=== PATIENT | female | born 1950 | race Caucasian/White ===

== ENCOUNTER → 2016-12-15 | Outpatient (CLI) | payer MEDICARE, OTHER ==
--- NOTE | 2016-12-15 22:51 | US ---
EXAMINATION TYPE: US kidneys/renal and bladder DATE OF EXAM: 12/15/2016 4:34 PM COMPARISON: NONE CLINICAL HISTORY: 66-year-old female with dysuria R30.0. TECHNIQUE: Multiple sonographic images of the kidneys and bladder were obtained. FINDINGS: EXAM MEASUREMENTS: Right Kidney: 10.8 x 3.9 x 5.0 cm Left Kidney: 11.1 x 5.6 x 5.6 cm No hydronephrosis on either side. Scattered small echogenic foci are present within the left kidney and could represent prominent vascu lar reflectors versus tiny nonobstructive calculi. There is a 1.8 cm cyst within the renal sinus region of the mid to lower pole left kidney. Internal l ow-level echoes are present. No gross abnormality of the urine distended bladder. The oracle identity management consultant reports visualizing both uretera l jets. IMPRESSION: 1. No hydronephrosis. 2. Echogenic foci within the left kidney could represent tiny nonobstructive calculi or prominent vas cular reflections. 3. A 1.8 cm parapelvic cyst on the left. Internal echoes could be artifactual or could represent debr is.
== END | disposition home or self-care (01) ==
LOC: RADUSMAIN 15:49
PROVIDERS: ATTEND Internal Medicine Geriatric Medicine
DX: N28.1 Cyst of kidney, acquired (principal); R93.422 Abnormal radiologic findings on diagnostic imaging of left kidney; R30.0 Dysuria
CPT/HCPCS: 76770

== ENCOUNTER → 2018-04-24 | Outpatient (CLI) | payer MEDICARE, OTHER ==
--- NOTE | 2018-04-24 16:48 | CT ---
EXAMINATION TYPE: CT abdomen pelvis w con DATE OF EXAM: 04/24/2018 COMPARISON: None HISTORY: Lower abdominal pain x2 weeks CT DLP: 1040.7 mGycm Automated exposure control for dose reduction was used. CONTRAST: CT scan of the abdomen pelvis is performed with IV Contrast, patient injected with 100 mL of Isovue 3 00. FINDINGS- LUNG BASES- No significant abnormality is appreciated. LIVER/GB-liver is low in attenuation correlate for fatty infiltration. Liver is prominent in size. PANCREAS- No gross abnormality is seen. SPLEEN- No gross abnormality is seen. Small accessory spleen noted. Small splenic granuloma. ADRENALS- No gross abnormality is seen. KIDNEYS/BLADDER- no hydronephrosis nephrolithiasis or renal mass. Parapelvic renal cysts are noted. BOWEL-diverticulosis of the colon with no CT evidence of diverticulitis.. Now thickening the wall the right colon with no inflammatory changes. LYMPH NODES- No greater than 1cm abdominal or pelvic lymph nodes areappreciated. OSSEOUS STRUCTURES-hypertrophic and degenerative changes of the spine.. OTHER- mild atherosclerotic change of the aorta. No evidence of aneurysm. No free fluid or free air. IMPRESSION- 1. Hepatomegaly with findings suggestive of fatty infiltration. 2. Diverticulosis of the colon with no CT evidence of diverticulitis. 3. There is mild wall thickening of the right colon without evidence of inflammatory change. This is a nonspecific finding. If clinically warranted direct visualization or barium enema could BE obtained for further evaluation.
== END | disposition home or self-care (01) ==
LOC: RADCTMAIN 14:33
PROVIDERS: ATTEND Internal Medicine Geriatric Medicine
DX: K57.30 Diverticulosis of large intestine without perforation or abscess without bleeding (principal); R16.0 Hepatomegaly, not elsewhere classified; K63.89 Other specified diseases of intestine
CPT/HCPCS: 74177; Q9967

== ENCOUNTER → 2018-06-05 | Outpatient (CLI) | payer MEDICARE, OTHER ==
[2018-06-05 14:55] VITALS: BP 108/71; PULSE 75; TEMP 97.9; BMI 29.9
--- NOTE | 2018-06-05 15:54 | P.HPOB ---
History of Present Illness H&P Date: 06/05/18 Chief Complaint: The patient is here for her routine gynecologic exam. This is a 68-year-old with an LMP of 2006. The patient continues to have intermittent vulvar pruritus. She's had this for many years. She has found that clobetasol cream is the most helpful. She uses this sparingly. She states her one prescription has lasted for several years. She denies any postmenopausal bleeding in his otherwise without complaints. Review of Systems Weight has been stable. She denies respiratory, cardiac and G.I. problems. She denies maltreatment or problems with falling. : she denies any significant problems with urinary leakage. Past Medical History Additional Past Medical History / Comment(s): Migraine headaches diet controlled and Mnire's disease. 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 History of Any Multi-Drug Resistant Organisms: None Reported Past Surgical History: Orthopedic Surgery (Right knee surgery), Tonsillectomy Additional Past Surgical History / Comment(s): Cataract surgery. Colonoscopies in 1997 and 2013. 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 - Past Family History Son(s) Additional Family Medical History / Comment(s): Child of a cardiac defect at 2 days after . Medications and Allergies Home Medications Medication Instructions Recorded Confirmed Type Magnesium PO DAILY 06/05/18 History Olmesartan/Hydrochlorothiazide PO DAILY 06/05/18 History [Benicar Hct 20-12.5 mg Tablet] Vitamin B Complex PO DAILY 06/05/18 History Allergies Allergy/AdvReac Type Severity Reaction Status Date / Time midazolam [From Versed] AdvReac Severe Hallucinati Unverified 06/05/18 14:33 ons Penicillins AdvReac Severe hives Unverified 06/05/18 14:32 Exam Vital Signs Temp Pulse BP 06/05/18 14:33 97.9 F 75 108/71 Intake and Output 06/05/18 06/05/18 06/05/18 06:59 14:59 22:59 Other: Weight 89.358 kg Height 5'8", weight 197 pounds, BMI 30.0. This is a well-developed well-nourished white female who is alert and oriented times 3 in no acute distress. HEENT: Within normal limits. NECK: Supple without mass or thyromegaly. CHEST AND LUNGS: Clear to auscultation. HEART: Regular rate and rhythm. BREASTS: Are without mass or discharge. AXILLARY EXAM: Negative for adenopathy. BACK: Negative for CVA tenderness. ABDOMEN: Soft, nontender, without palpable masses. PELVIC EXAM: external genitalia reveals mild generalized Palor with moderate atrophy, consistent with lichen sclerosis. This extends from the Vulva to the perineum and perianal areas. There are no focal lesions. Cervix and vagina appear normal with mild to moderate atrophy. There is no unusual discharge. There is a stable grade to cystocele. The uterus is midposition, nongravid size and nontender. There are no palpable adnexal masses or tenderness. RECTAL EXAM: rectovaginal exam is negative for mass or tenderness and is negative for occult blood. EXTREMITIES: Nontender. IMPRESSION: 1. 68-year-old menopausal female with stable grade to cystocele which is asymptomatic. 2. 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 PLAN: 1. Pap smear was performed. 2. Self breast awareness was discussed with the patient. 3. Screening mammogram is scheduled for 06/28/2018. The order slip was given to the patient for this. 4. Osteoporosis prevention was discussed. I have recommended screening bone density testing. The order slip was given to the patient for this. 5. The prescription was given to the patient for clobetasol 0.05% cream, dispense 45 g tube, to be applied BID PRN with 2 refills. The patient requested a paper prescription and this was given to her. 6. The patient does not get flu shots since a flu shot once made her very ill. 7. She will return in one year. She was also instructed to call if she has worsening vulvar symptoms.
== END | disposition home or self-care (01) ==
LOC: WWCWWP 14:12
PROVIDERS: ATTEND Obstetrics & Gynecology
DX: Z53.9 Procedure and treatment not carried out, unspecified reason (principal)

== ENCOUNTER → 2018-06-28 | Outpatient (CLI) | payer MEDICARE, OTHER ==
--- NOTE | 2018-06-29 12:16 | MM ---
Reason for exam: screening (asymptomatic). Last mammogram was performed 2 years ago. History: Patient is postmenopausal. Family history of breast cancer in sister at age 60. Physical Findings: A clinical breast exam by your physician is recommended on an annual basis and results should be correlated with mammographic findings. MG 3D Screening Mammo W/Cad Bilateral CC and MLO view(s) were taken. Prior study comparison: July 05, 2016, mammogram, performed at [facility]. October 31, 2014, mammogram, performed at [facility]. September 13, 2013, mammogram, performed at [facility]. September 19, 2006, bilateral screening mammogram w/CAD. September 16, 2005, bilateral screening mammogram w/CAD. There are scattered fibroglandular densities. There is no discrete abnormality. No significant changes when compared with prior studies. ASSESSMENT: Negative, BI-RAD 1 RECOMMENDATION: Routine screening mammogram of both breasts in 1 year.
== END | disposition home or self-care (01) ==
LOC: RADMAMWWP 07:53
PROVIDERS: ATTEND Obstetrics & Gynecology
DX: Z12.31 Encounter for screening mammogram for malignant neoplasm of breast (principal)
CPT/HCPCS: 77063; 77067

== ENCOUNTER 2018-07-17 13:45 | Emergency (ER) | payer MEDICARE, OTHER ==
[2018-07-17 14:11] VITALS: TEMP 98.1
[2018-07-17] MEDS ORDERED: KETOROLAC 60 MG/2 ML VIAL IM STA (14:39)
--- NOTE | 2018-07-17 15:39 | XR ---
EXAMINATION TYPE: XR Hip Bilateral Complete DATE OF EXAM: 07/17/2018 CLINICAL HISTORY: pain TECHNIQUE: AP and frogleg views of the bilateral hips are obtained. COMPARISON: None. FINDINGS: There is no acute fracture/dislocation evident. The joint space appears within normal li mits. The overlying soft tissue appears unremarkable. IMPRESSION: 1. There is no acute fracture or dislocation. ICD 10 NO FRACTURE, INITIAL EVALUATION
--- NOTE | 2018-07-17 15:54 | CT ---
EXAMINATION TYPE: CT lumbar spine wo con DATE OF EXAM: 07/17/2018 3:38 PM COMPARISON: None HISTORY: Right sided back pain. CT DLP: 1067.5 mGycm Automated exposure control for dose reduction was used. Unenhanced CT of the lumbar spine was performed. Bone and soft tissue window settings are submitted as well as coronal and sagittal reconstructions. Assessment spinal canal limited due to resolution an d artifact. Liver appears reduced in attenuation correlate for hepatic cirrhosis. Splenic granuloma incidentally noted. Atherosclerotic change aorta diverticulosis of the colon incidentally noted. Left renal parape lvic cyst incidentally noted. There is straightening of the lumbar spine with loss of normal lordosis. T12-L1 there is hypertrophic change facets and mild degenerative disc disease. No obvious canal steno sis.. L1-L2: Degenerative disc disease and circumferential disc bulging. There is facet uropathy L2-L3: Degenerative disc disease and hypertrophic spurring. Circumferential disc bulging with facet a rthropathy and ligamentum flavum hypertrophy. Likely is evidence of canal stenosis. L3-L4: Degenerative disc disease with diffuse disc bulging and hypertrophic change facets and ligamen joe flavum. Canal stenosis suspected. Bilateral foraminal encroachment suspected. L4-L5: Vacuum disc and severe degenerative disc disease. Particularly the facets and ligamentum flavu m diffuse disc bulging. Severe central stenosis and bilateral foraminal encroachment SPECT. L5-S1: No obvious canal stenosis. Neural foramina appear to be patent. IMPRESSION: 1. Multilevel degenerative disc disease and hypertrophic changes with most marked findings at L4-L5. Severe canal stenosis suspected. Recommend MRI for further evaluation. 2. Multilevel disc bulging, facet arthropathy and ligament flavum hypertrophy result in multilevel ca nal stenosis. 3. Hepatomegaly with reduced attenuation diffusely throughout the liver correlate for hepatic steatos is.
[2018-07-17] MEDS ORDERED: MORPHINE SULFATE 4 MG/ML SYRINGE IM STA (16:34)
--- NOTE | 2018-07-17 16:36 | ED ---
General Adult HPI - General Chief complaint: Back Pain/Injury Stated complaint: back, hip pain-appt at 1400 Source: patient, RN notes reviewed, old records reviewed Mode of arrival: ambulatory Limitations: no limitations - History of Present Illness Initial comments: 68-year-old female patient with past history including lumbar spinal stenosis, bulging lumbar disks, chronic back pain, hypertension since ED with 1 month acute exacerbation of low back pain. Patient states that approximately one month ago she was walking headache, when one foot fell through the floor, stopping at her R hip. Patient did not fall entirely through the floor. Patient denies trauma to head or neck during the incident. Pt did not initially have pain, did not present to the ED. Approximately last month patient has had worsening lower back pain, right hip pain. Patient has been following up with a [facility] orthopedic physician Dr. Hill in the past for her back pain. Patient has an appointment with her tomorrow. Patient presented in ED for pain control, evaluation. Patient is ambulatory, states her back feels tight during her ambulation. Patient has pain in her right paralumbar region which does not radiate. Patient has pain in her right hip, which does not radiate. Patient denies new weakness, paresthesias, loss of bowel or bladder control, fever/chills, history of IV drug use. Patient denies recent trauma besides the previously described incident 1 month ago. Systemic: Pt denies fatigue, myalgia, fever/chills, rash. Pt denies weakness, night sweats, weight loss. Neuro: Pt denies headache, visual disturbances, syncope or pre-syncope. HEENT: Pt denies ocular discharge or irritation, otalgia, rhinorrhea, pharyngitis or notable lymphadenopathy. Cardiopulmonary: Pt denies chest pain, SOB, heart palpitations, dyspnea on exertion. Abdominal/GI: Pt denies abdominal pain, n/v/d. : Pt denies dysuria, burning w/ urination, frequency/urgency. Denies new onset urinary or bowel incontinence. MSK: Pt denies myalgia, loss of strength or function in extremities. - Related Data Home Medications Medication Instructions Recorded Confirmed Magnesium PO DAILY 06/05/18 Olmesartan/Hydrochlorothiazide PO DAILY 06/05/18 [Benicar Hct 20-12.5 mg Tablet] Vitamin B Complex PO DAILY 06/05/18 Previous Rx's Medication Instructions Recorded Ibuprofen [Motrin] 600 mg PO Q6HR PRN #8 day 07/17/18 Allergies Allergy/AdvReac Type Severity Reaction Status Date / Time midazolam [From Versed] AdvReac Severe Hallucinati Verified 07/17/18 14:13 ons Penicillins AdvReac Severe hives Verified 07/17/18 14:13 clindamycin AdvReac Diarrhea Verified 07/17/18 14:13 monosodium glutamate [MSG] AdvReac Diarrhea Verified 07/17/18 14:13 Ringer's solution,lactated AdvReac Headache Verified 07/17/18 14:13 Review of Systems ROS Statement: Those systems with pertinent positive or pertinent negative responses have been documented in the HPI. ROS Other: All systems not noted in ROS Statement are negative. Past Medical History Additional Past Medical History / Comment(s): Migraine headaches diet controlled and Mnire's disease. PAST CHEMIST ENZYMES HISTORY: She has no history of STDs. History of Any Multi-Drug Resistant Organisms: None Reported Past Surgical History: Orthopedic Surgery, Tonsillectomy Additional Past Surgical History / Comment(s): Cataract surgery. Colonoscopies in 1997 and 2013. Past Psychological History: No Psychological Hx Reported Smoking Status: Never smoker Past Alcohol Use History: Occasional Past Drug Use History: None Reported - Past Family History Son(s) Additional Family Medical History / Comment(s): Child of a cardiac defect at 2 days after . General Exam - General Exam Comments Initial Comments: Constitutional: NAD, AOX3, Pt has pleasant affect. HEENT: NC/AT, trachea midline, neck supple, no lymphadenopathy. Posterior pharynx non erythematous, without exudates. External ears appear normal, without discharge. Mucous membranes moist. Eyes PERRLA, EOM intact. There is no scleral icterus. No pallor noted. Cardiopulmonary: RRR, no murmurs, rubs or gallops, no JVD noted. Lungs CTAB in anterior and posterior reddy. No peripheral edema. Abdominal exam: Abdomen soft and non-distended. Abdomen non-tender to palpation in all 4 quadrants. Bowel sounds active in LLQ. No hepatosplenomegaly. Neuro: CN II-XII intact. No focal deficit, no facial droop. Patient has full active range of motion of all extremities. Sensation intact. MSK: Pt cervical, thoracic, lumbar spine is nontender to palpation midline. Pt has mild R paralumbar tenderness. Pt has mild R hip tenderness. Pt has 5/5 psoas and quadriceps strength. Pt has 2/4 patellar and achillies reflexes. Pt has 2+ posteror tibialis pulse. Right Straight leg raise positive. Left straight leg raise negative. Limitations: no limitations Course Vital Signs 07/17/18 07/17/18 14:04 16:45 Temperature 98.1 F Pulse Rate 77 66 Respiratory 16 14 Rate Blood Pressure 166/75 169/73 O2 Sat by Pulse 94 L 97 Oximetry Medical Decision Making - Medical Decision Making 68-year-old female patient with past history including lumbar spinal stenosis, bulging lumbar disks, chronic back pain, hypertension since ED with 1 month acute exacerbation of low back pain. Patient states that approximately one month ago she was walking headache, when one foot fell through the floor, stopping at her R hip. Patient did not fall entirely through the floor. Patient denies trauma to head or neck during the incident. Pt did not initially have pain, did not present to the ED. Patient presented in ED for pain control, evaluation. Patient is ambulatory, states her back feels tight during her ambulation. Patient has pain in her right paralumbar region which does not radiate. Patient has pain in her right hip, which does not radiate. Patient denies new weakness, paresthesias, loss of bowel or bladder control, fever/chills, history of IV drug use. Patient denies recent trauma besides the previously described incident 1 month ago. MSK Physical exam revealed: Pt cervical, thoracic, lumbar spine is nontender to palpation midline. Pt has mild R paralumbar tenderness. Pt has mild R hip tenderness. Pt has 5/5 psoas and quadriceps strength. Pt has 2/4 patellar and achillies reflexes. Pt has 2+ posteror tibialis pulse. Right Straight leg raise positive. Left straight leg raise negative. Cardiopulmonary, abdominal, HEENT, neuro physical exam did not reveal any acute pathology. Patient had plain films of his bilaterally which did not not reveal acute fracture or dislocation. CT of lumbar spine displayed severe canal stenosis, multilevel disc bulging, however no compressive symptoms. Patient states that these findings are similar to what she's had the past on CTs, and MRI. Patient has an appointment with her personal orthospine physician tomorrow, Dr. Hill. Patient will keep this appointment. A referral will be made for Gaston odom that the pt may use if she so desires. Patient to follow up with PCP in 1-2 days. Patient pain well-controlled in ER. Patient to use ibuprofen for pain control tonight. Will defer further pain management to orthospine physician patient will see tomorrow. Patient given strict return precautions including, new weakness, new paresthesias, saddle anesthesia, loss of bowel or bladder control, urinary retention, or any other new symptoms. Pt sister is driving pt home. Case discussed with Dr. Schultz. Pt is mildly hypertensive, will take bp medication at home. Disposition Clinical Impression: Lumbar back pain Disposition: HOME SELF-CARE Condition: Good Instructions: Acute Low Back Pain (ED), Chronic Back Pain (ED) Additional Instructions: Patient to adhere to previously discussed treatment plan and will take medication(s) as directed. Patient to follow up with PCP in 1-2 days. Patient to return to ED if symptoms do not improve. Prescriptions: Ibuprofen [Motrin] 600 mg PO Q6HR PRN #8 day PRN Reason: Pain Is patient prescribed a controlled substance at d/c from ED?: No Referrals: Michael Bobo MD [Primary Care Provider] - 1-2 days Dave Grimaldo DO [Doctor of Osteopathic Medicine] - 1-2 days Time of Disposition: 17:02
[2018-07-17 16:46] VITALS: BP 169/73; PULSE 66; RESP 14
== END 2018-07-17 17:20 | disposition home or self-care (01) ==
LOC: EC 13:45
DX: M48.061 Spinal stenosis, lumbar region without neurogenic claudication (principal); M51.86 Other intervertebral disc disorders, lumbar region; M25.551 Pain in right hip; I10 Essential (primary) hypertension; Z79.899 Other long term (current) drug therapy; Z88.0 Allergy status to penicillin; Z88.1 Allergy status to other antibiotic agents; Z88.8 Allergy status to other drugs, medicaments and biological substances
CPT/HCPCS: 99284; 96372 ×2; 73521; 72131; J2270; J1885

== ENCOUNTER → 2019-07-16 | Outpatient (CLI) | payer MEDICARE, OTHER ==
[2019-07-16 15:45] VITALS: BP 137/75; PULSE 74; RESP 18; TEMP 98.7
--- NOTE | 2019-07-16 16:26 | P.HPOB ---
History of Present Illness H&P Date: 07/16/19 Chief Complaint: The patient is here for her routine gynecologic exam and ma mmogram. This is a 69-year-old with an LMP of 2006. The patient has been treated for lichen's sclerosis of the vulva with clobetasol cream and this has been helpful. She states she uses the cream sparingly as needed for vulvar pruritus. She denies any other problems. Review of Systems The patient has gained 11 pounds over the last year. She denies respiratory, cardiac, or G.I. problems. Past Medical History Additional Past Medical History / Comment(s): Migraine headaches diet controlled and Mnire's disease. 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 History of Any Multi-Drug Resistant Organisms: None Reported Past Surgical History: Orthopedic Surgery, Tonsillectomy Additional Past Surgical History / Comment(s): Cataract surgery. Colonoscopies in 1997 and 2013. 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 - Past Family History Son(s) Additional Family Medical History / Comment(s): Child of a cardiac defect at 2 days after . Medications and Allergies Home Medications Medication Instructions Recorded Confirmed Type Magnesium 1 tab PO DAILY 06/05/18 07/16/19 History Olmesartan/Hydrochlorothiazide 1 tab PO DAILY 06/05/18 07/16/19 History [Benicar Hct 20-12.5 mg Tablet] Vitamin B Complex 1 tab PO DAILY 06/05/18 07/16/19 History Ibuprofen [Motrin] 600 mg PO Q6HR PRN #8 day 07/17/18 07/16/19 Rx Allergies Allergy/AdvReac Type Severity Reaction Status Date / Time midazolam [From Versed] AdvReac Severe Hallucinati Verified 07/16/19 15:45 ons Penicillins AdvReac Severe hives Verified 07/16/19 15:45 clindamycin AdvReac Diarrhea Verified 07/16/19 15:45 monosodium glutamate [MSG] AdvReac Diarrhea Verified 07/16/19 15:45 Ringer's solution,lactated AdvReac Headache Verified 07/16/19 15:45 Exam Vital Signs Temp Pulse Resp BP Pulse Ox 07/16/19 15:40 98.7 F 74 18 137/75 97 Intake and Output 07/16/19 07/16/19 07/16/19 06:59 14:59 22:59 Other: Weight 94.347 kg Height 5 feet 8 inches, weight 208 pounds, BMI 31.6. This is a well-developed well-nourished white female who is alert and oriented times 3 in no acute distress. HEENT: Within normal limits. NECK: Supple without mass or thyromegaly. CHEST AND LUNGS: Clear to auscultation. HEART: Regular rate and rhythm. BREASTS: Are without mass or discharge. AXILLARY EXAM: Negative for adenopathy. BACK: Negative for CVA tenderness. ABDOMEN: Soft, nontender, without palpable masses. PELVIC EXAM: External genitalia reveals mild generalized pallor with moderate atrophy consistent with lichen sclerosis the pallor extends from the vulva to the perineum and perianal areas. These findings are stable and consistent with her previous exam. There are no focal lesions.. Cervix and vagina appear normal with mild to moderate atrophy. There is no unusual discharge. There is a stable grade 2 cystocele. The uterus is midposition, nongravid size and nontender. There are no palpable adnexal masses or tenderness. RECTAL EXAM: Rectovaginal exam is negative for mass or tenderness and is negative for occult blood. EXTREMITIES: Nontender. IMPRESSION: 1. 69-year-old menopausal female with stable grade 2 cystocele which is asymptomatic. 2. Stable lichen sclerosis intermittent vulvar pruritus which is controlled with clobetasol cream as needed. PLAN: 1. Pap smears have been discontinued. She does not have any history of cervical problems and has been adequately screened. 2. Self breast awareness was discussed with the patient. 3. Screening mammogram will be done today. 4. Osteoporosis prevention was discussed. I have stressed the importance of adequate calcium, vitamin D and regular exercise. Recommended amounts of calcium and vitamin D were also discussed. I have recommended bone density screening and the order slip was given to the patient for this. 5. She will continue to use clobetasol 0.05% cream twice a day as needed. Dispense 45 g. The patient is requesting a paper prescription for this and this was given to her. 6. She was advised to return in one year for her annual well woman exam.
--- NOTE | 2019-07-17 10:13 | MM ---
Reason for exam: screening (asymptomatic). Last mammogram was performed 1 year and 1 month ago. History: Patient is postmenopausal. Family history of breast cancer in sister at age 60. Took hormonal contraceptives for 4 years. Took progesterone for 7 months. Physical Findings: A clinical breast exam by your physician is recommended on an annual basis and results should be correlated with mammographic findings. MG 3D Screening Mammo W/Cad Bilateral CC and MLO view(s) were taken. Prior study comparison: June 28, 2018, bilateral MG 3d screening mammo w/cad. July 05, 2016, mammogram, performed at [facility]. There are scattered fibroglandular densities. There are benign appearing round vascular calcifications bilaterally. There is no discrete abnormality. ASSESSMENT: Benign, BI-RAD 2 RECOMMENDATION: Routine screening mammogram of both breasts in 1 year.
== END | disposition home or self-care (01) ==
LOC: WWCWWP 15:32
PROVIDERS: ATTEND Obstetrics & Gynecology
DX: Z12.31 Encounter for screening mammogram for malignant neoplasm of breast (principal)
CPT/HCPCS: 77063; 77067

== ENCOUNTER → 2021-02-01 | Outpatient (CLI) | payer OTHER | END | disposition home or self-care (01) | LOC: LABWHC1 10:05 | PROVIDERS: ATTEND Orthopaedic Surgery | DX: Z01.812 Encounter for preprocedural laboratory examination (principal); Z20.822 Contact with and (suspected) exposure to COVID-19 | CPT/HCPCS: U0003; C9803; U0005 ==

== ENCOUNTER → 2021-05-21 | Outpatient (CLI) | payer MEDICARE, OTHER ==
[2021-05-21 15:29] LABS: Basophils # (A) 0.04 X 10*3/uL (0.00-0.10); Basophils % (A) 0.6 %; Eosinophils # (A) 0.03 X 10*3/uL (0.04-0.35); Eosinophils % (A) 0.5 %; HCT 41.2 % (37.2-46.3); Lymphocytes # (A) 1.63 X 10*3/uL (0.90-5.00); Lymphocytes % (A) 25.8 %; MCH 28.8 pg (27.0-32.0); MCHC 31.6 g/dL (32.0-37.0); MCV 91.4 fL (80.0-97.0); Monocytes # (A) 0.43 X 10*3/uL (0.20-1.00); Monocytes % (A) 6.8 %; Neutrophils # (A) 4.16 X 10*3/uL (1.80-7.70); Neutrophils % (A) 65.7 %; Platelet Count 255 X 10*3/uL (140-440); RBC 4.51 X 10*6/uL (4.10-5.20); RDW 12.4 % (11.5-14.5); WBC 6.33 X 10*3/uL (4.50-10.00)
[2021-05-21 19:06] LABS: Erythrocyte Sedimentation Rate 14 mm/Hr (0-30)
[2021-05-21 19:16] LABS: LDL Cholesterol,Calculated 158.1 mg/dL (0.0-131.0); VLDL Calculation 14.84 mg/dL (5.00-40.00)
[2021-05-23 18:25] LABS: Blood Urea Nitrogen 19.7 mg/dL (9.0-27.0); Calcium 9.3 mg/dL (8.7-10.3); Carbon Dioxide 24.6 mmol/L (21.6-31.8); Potassium 4.5 mmol/L (3.5-5.5); Total Bilirubin 0.3 mg/dL (0.30-1.20); Total Protein 6.6 g/dL (6.2-8.2)
[2021-05-23 18:26] LABS: African American GFR (CKD) 102.5 (60.0-200.0); Albumin 4.3 g/dL (3.8-4.9); Albumin/Globulin Ratio 1.87 (1.60-3.17); Anion Gap 12.4 mmol/L (4.00-12.00); BUN/Creat Ratio 28.14 Ratio (12.00-20.00); C Reactive Protein 0.3 mg/dL (0.00-0.80); Chol/HDL Ratio 3.47 Ratio; Globulin 2.3 g/dL (1.6-3.3); HDL Cholesterol 70.1 mg/dL (40.00-60.00); Non-African American GFR(CKD) 88.4 (60.0-200.0); Protein, Total 6.6 g/dL (6.2-8.2); Triglycerides 74.2 mg/dL (0.00-149.00); Uric Acid 4.8 mg/dL (2.9-7.7)
== END | disposition home or self-care (01) ==
LOC: LABWHC1 08:09
PROVIDERS: ATTEND Internal Medicine Geriatric Medicine
DX: M19.90 Unspecified osteoarthritis, unspecified site (principal); E78.2 Mixed hyperlipidemia; R73.9 Hyperglycemia, unspecified
CPT/HCPCS: 36415; 80053; 80061; 83036; 84165; 84443; 84550; 85025; 85652; 86140; 86225; 86431; 86618; 86747; 86812

== ENCOUNTER → 2021-07-24 | Outpatient (CLI) | payer MEDICARE, OTHER ==
--- NOTE | 2021-07-24 12:55 | XR ---
EXAMINATION TYPE: XR chest 2V DATE OF EXAM: 07/24/2021 COMPARISON: NONE HISTORY: Shortness of breath TECHNIQUE: Frontal and lateral views of the chest are obtained. FINDINGS: Scattered senescent parenchymal changes noted. Hyperinflation compatible with COPD. No evidence for infiltrate. No evidence for atelectasis. Heart size is stable. Mediastinal structures are stable and grossly unremarkable. No evidence for hilar prominence. Degenerative changes dorsal spine. IMPRESSION: 1. No evidence for acute pulmonary disease.
== END | disposition home or self-care (01) ==
LOC: RADXRMAIN 09:05
PROVIDERS: ATTEND Nurse Practitioner Gerontology
DX: R06.02 Shortness of breath (principal)
CPT/HCPCS: 71046

== ENCOUNTER → 2021-08-24 | Outpatient (CLI) | payer MEDICARE, OTHER ==
[2021-08-24 14:17] VITALS: BP 122/70; PULSE 90; RESP 16; TEMP 98
--- NOTE | 2021-08-24 15:13 | P.HPOB ---
History of Present Illness H&P Date: 08/24/21 Chief Complaint: The patient is here for her routine gynecologic exam and ma mmogram. This is a 71-year-old with an LMP of 2006. The patient has been treated for suspected lichen sclerosus of the vulva with clobetasol cream and she uses this infrequently. She states it has been effective when she does have pruritus. She states she had a boil on the inner aspect of the left labia minora near the apex in 2020. She states that it did break open and resolves. She is otherwise without complaints. Review of Systems The patient has lost 15 pounds over the last 2 years. She denies respiratory, cardiac, or G.I. problems. Past Medical History Past Medical History: Musculoskeletal Disorder Additional Past Medical History / Comment(s): Left shoulder problems after a fall. Migraine headaches diet controlled and Mnire's disease. 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 History of Any Multi-Drug Resistant Organisms: None Reported Past Surgical History: Orthopedic Surgery, Tonsillectomy Additional Past Surgical History / Comment(s): Cataract surgery. Colonoscopies in 2018(next after 5yr). left shoulder repar 08/2020. 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 - Past Family History Son(s) Additional Family Medical History / Comment(s): Child of a cardiac defect at 2 days after . Medications and Allergies Home Medications Medication Instructions Recorded Confirmed Type Magnesium 1 tab PO DAILY 06/05/18 08/24/21 History Olmesartan/Hydrochlorothiazide 1 tab PO DAILY 06/05/18 08/24/21 History [Benicar Hct 20-12.5 mg Tablet] Vitamin B Complex 1 tab PO DAILY 06/05/18 08/24/21 History Ibuprofen [Motrin] 600 mg PO Q6HR PRN #8 day 07/17/18 08/24/21 Rx Allergies Allergy/AdvReac Type Severity Reaction Status Date / Time midazolam [From Versed] AdvReac Severe Hallucinati Verified 08/24/21 14:09 ons Penicillins AdvReac Severe hives Verified 08/24/21 14:09 clindamycin AdvReac Diarrhea Verified 08/24/21 14:09 monosodium glutamate [MSG] AdvReac Diarrhea Verified 08/24/21 14:09 Ringer's solution,lactated AdvReac Headache Verified 08/24/21 14:09 Exam Vital Signs Temp Pulse Resp BP 08/24/21 14:09 98.0 F 90 16 122/70 Intake and Output 08/23/21 08/24/21 08/24/21 22:59 06:59 14:59 Other: Weight 83.915 kg Height 5 feet 5 inches, weight 193 pounds, BMI 32.1. This is a well-developed well-nourished white female who is alert and oriented times 3 in no acute distress. HEENT: Within normal limits. NECK: Supple without mass or thyromegaly. CHEST AND LUNGS: Clear to auscultation. HEART: Regular rate and rhythm. BREASTS: Are without mass or discharge. AXILLARY EXAM: Negative for adenopathy. BACK: Negative for CVA tenderness. ABDOMEN: Soft, nontender, without palpable masses. PELVIC EXAM: External genitalia reveals some generalized mild pallor with moderate atrophy consistent with lichen sclerosus. There is a small area on the inner aspect of the left labia minora near the apex which has a scarred appearance which is pallor compared to the it has the appearance of a previous biopsy area. This area measures approximately 8 x 5 mm. She states it is where she had a boil that popped into 2020. Cervix and vagina appear normal with mild to moderate atrophy. There is no unusual discharge. There is a stable grade 2 cystocele. The uterus is midposition, nongravid size and nontender. There are no palpable adnexal masses or tenderness. RECTAL EXAM: Rectovaginal exam is negative for mass or tenderness and is negative for occult blood. EXTREMITIES: Nontender. IMPRESSION: 1. 71-year-old menopausal female with stable grade 2 cystocele which is asymptomatic. 2. Mild vulvar lichen sclerosis improved with Temovate cream. 3. Scarred area on the inner aspect of the left labia minora consistent with a resolved boil that the patient experienced in 2020. PLAN: 1. Pap smears have been discontinued. 2. Self breast awareness was discussed with the patient. We have also discu ssed symptoms associated with inflammatory breast cancer. 3. Screening mammogram will be done today. 4. Osteoporosis prevention was discussed. I have stressed the importance of adequate calcium, vitamin D and regular exercise. Recommended amounts of calcium and vitamin D were also discussed. 5. Temovate 0.05% ointment twice a day when necessary for vulvar itching. A paper prescription was given to the patient per her request. 6. She will return to partially for 6 months for recheck of the scarred area on the inner aspect of the left labia minora to make sure there is no significant changes. 7. She has completed her Covid vaccination series.
--- NOTE | 2021-08-26 09:55 | MM ---
Reason for exam: screening (asymptomatic). Last mammogram was performed 2 years and 1 month ago. History: Patient is postmenopausal. Family history of breast cancer in sister at age 60. Took hormonal contraceptives for 4 years. Took progesterone for 7 months. Physical Findings: A clinical breast exam by your physician is recommended on an annual basis and results should be correlated with mammographic findings. MG 3D Screening Mammo W/Cad Bilateral CC and MLO view(s) were taken. Prior study comparison: July 16, 2019, bilateral MG 3d screening mammo w/cad. June 28, 2018, bilateral MG 3d screening mammo w/cad. There are scattered fibroglandular densities. Benign vascular calcifications. Stable right axillary nodes. No significant changes when compared with prior studies. ASSESSMENT: Benign, BI-RAD 2 RECOMMENDATION: Routine screening mammogram of both breasts in 1 year.
== END ==
LOC: WWCWWP 13:53
PROVIDERS: ATTEND Obstetrics & Gynecology
DX: Z12.31 Encounter for screening mammogram for malignant neoplasm of breast (principal); Z01.419 Encounter for gynecological examination (general) (routine) without abnormal findings; G43.909 Migraine, unspecified, not intractable, without status migrainosus; Z88.0 Allergy status to penicillin; Z88.1 Allergy status to other antibiotic agents; Z91.02 Food additives allergy status
CPT/HCPCS: 77063; 77067

== ENCOUNTER → 2022-06-28 | Outpatient (CLI) | payer MEDICARE, OTHER ==
--- NOTE | 2022-06-28 14:17 | BD ---
EXAMINATION TYPE: Axial Bone Density DATE OF EXAM: 06/28/2022 COMPARISON: NONE CLINICAL HISTORY: 72 years year old Female. ICD-10 CODE: Z78.0 ASYMPTOMATIC MENOPAUSAL STATE Height: 5'7 Weight: 192 FRAX RISK QUESTIONS: History of Fracture in Adulthood: y Secondary Osteoporosis: RISK FACTORS HISTORY OF: Postmenopausal woman: y MEDICATIONS: Additional Medications: blood pressure Additional History: EXAM MEASUREMENTS: Bone mineral densitometry was performed using the [employer] System. Bone mineral density as measured about the Lumbar spine is: ----- L1-L4(G/cm2): 1.337 T Score Values are as follows: ----- L1: 0.0 ----- L2: 0.0 ----- L3: 1.4 ----- L4: 3.3 ----- L1-L4: 1.3 Bone mineral density about the R hip (g/cm2): 0.856 Bone mineral density about the L hip (g/cm2): 0.886 T Score values are as follows: -----R Neck: -1.3 -----L Neck: -1.1 -----R Total: -0.6 -----L Total: -0.4 FRAX%s: The graph provided illustrates a 9.4% chance for a major osteoporotic fx and a 1.2% chance fo r the hips probability for fx in 10 years time. IMPRESSION: Osteopenia (T Score between -2.5 and -1). There is slightly increased risk of fracture and the patient may be considered for treatment. Re-Screen 2-5 years. NOTE: T-SCORE=SD OF THE YOUNG ADULT MEAN.
== END | disposition home or self-care (01) ==
LOC: RADBDWWP 11:11
PROVIDERS: ATTEND Obstetrics & Gynecology
DX: M85.89 Other specified disorders of bone density and structure, multiple sites (principal); Z78.0 Asymptomatic menopausal state
CPT/HCPCS: 77080

== ENCOUNTER → 2022-06-28 | Outpatient (CLI) | payer MEDICARE, OTHER ==
--- NOTE | 2022-06-28 12:54 | MM ---
Reason for Exam: Clinical finding. Last screening mammogram was performed 10 month(s) ago. Indicated Problems: Pain of the right side (Focal) for 3 Month(s). Patient History: Menarche at age 12. First Full-Term at age 23. Postmenopausal. Patient has history of breast feeding. Progesterone for 7 months. Patient used Hormonal Contraceptives for 4 years. Sister had breast cancer, age 60. Risk Values: Lamar 5 year model risk: 3.7%. NCI Lifetime model risk: 9.9%. Prior Study Comparison: 09/13/2013 Screening Mammogram, [facility]. 10/31/2014 Screening Mammogram, [facility]. 07/05/2016 Screening Mammogram, [facility]. 06/28/2018 Bilateral Screening Mammogram, [facility] 07/16/2019 Bilateral Screening Mammogram, [facility]. 08/24/2021 Bilateral Screening Mammogram, [facility]. Tissue Density: Right: There are scattered fibroglandular densities. Findings: Analyzed By CAD. No discrete spiculated or lobular mass evident along the inferior medial right breast to correlate with the area of patient's pain and palpable region. Ultrasound is recommended for additional evaluation. No suspicious groups of microcalcifications, spiculated or lobular masses, architectural distortion or other secondary signs of malignancy are mammographically apparent. Overall Assessment: Incomplete: need additional imaging evaluation, BI-RAD 0 Management: Diagnostic Breast Ultrasound of the right breast. A negative mammogram report should not preclude additional follow up of suspicious palpable abnormalities. Patient should continue monthly self breast exam. A clinical breast exam by your physician is recommended on an annual basis and results should be correlated with mammographic findings. Electronically signed and approved by: Benitez Gabriel D.O. Radiologis
--- NOTE | 2022-06-28 13:11 | USB ---
Reason for Exam: Clinical finding. Patient History: Menarche at age 12. First Full-Term at age 23. Postmenopausal. Patient has history of breast feeding. Progesterone for 7 months. Patient used Hormonal Contraceptives for 4 years. Sister had breast cancer, age 60. Risk Values: Lamar 5 year model risk: 3.7%. NCI Lifetime model risk: 9.9%. Technique: Method: Targeted. Prior Study Comparison: 06/28/2018 Bilateral Screening Mammogram, [facility]. 07/16/2019 Bilateral Screening Mammogram, [facility]. 08/24/2021 Bilateral Screening Mammogram, [facility]. Findings: The area of palpable concern of the right breast, the axilla of the right breast and the retroareolar of the right breast were scanned. No solid or cystic masses are identified. Normal ultrasound breast tissue in the region of the patient's palpable area and location of pain. Overall Assessment: Negative, BI-RAD 1 Management: Screening Mammogram of both breasts in 2 months. A clinical breast exam by your physician is recommended on an annual basis and results should be correlated with mammographic findings. This exam should not preclude additional follow-up of suspicious palpable abnormalities. ??Results were given to the patient verbally at the time of exam. Electronically signed and approved by: Benitez Gabriel D.O. Radiologis
== END | disposition home or self-care (01) ==
LOC: RADMAMWWP 12:00
PROVIDERS: ATTEND Obstetrics & Gynecology
DX: N63.14 Unspecified lump in the right breast, lower inner quadrant (principal); Z78.0 Asymptomatic menopausal state; Z80.3 Family history of malignant neoplasm of breast
CPT/HCPCS: 77065; 76642; G0279; 77061

== ENCOUNTER → 2022-06-28 | Outpatient (CLI) | payer MEDICARE, OTHER ==
[2022-06-28 11:30] VITALS: BP 137/76; PULSE 71; RESP 17; TEMP 97.8
--- NOTE | 2022-06-28 12:18 | P.PN ---
Progress Note - Text Progress Note Date: 06/28/22 Chief Complaint: Right breast soreness for 3 months. HPI: This is a 72-year-old with an LMP of 2006. The patient states she developed right breast aching about 3 months ago. She states that aching seems to go from the nipple to the 3 o'clock position of the medial aspect of the breast. After about 2 months this did not resolve and she made an appointment to be seen. Denies feeling a mass or lump in the area. She also denies nipple discharge. She denies any new medications or supplements. She does not take hormone replacement therapy nor does she take supplements for menopausal symptoms. She does drink about 2 cups of coffee per day. She also has been treated for suspected lichen sclerosus of the vulva. About 1 year ago she developed a boil on the inner aspect of the left labia minor or a near the apex. The boil did break open and resolves. ROS: She denies respiratory, cardiac, or GI problems. PE: Blood pressure: 137/76, Height: 7 inches, Weight: 193 pounds, Temperature: 97.8, Pulse:71. Pulse oximeter 97%. This is a well developed, well nourished, white female who is alert and orientedx3, in no acute distress. Right breast: There is mild tenderness going from the nipple along the 3 o'clock position of the breast. In this area there is a slight thin, warm like ridge approximately 0.5 cm in thickness and about 4-5 mm in length. At the medial aspect of this ridge, there is a 9 mm round area that seems to be continuous with the ridge. There are no other masses in the right breast. There is no evidence of nipple discharge. Axillary exam is negative for adenopathy on the right side. External genitalia reveals findings consistent with lichen sclerosis including mild generalized pallor with moderate atrophy. On the inner aspect of the left labia minora near the apex this continues to have a flat scarred appearance measuring approximately 5 x 8 mm. This is nontender. This seems unchanged from her previous exam. Impression: 1. 72-year-old menopausal female with a three-month history of right breast soreness along the line at approximate the 3 o'clock position. There seems to be a slight ridge of fibrous tissue most consistent with probable milk gland tissue. 2. Stable lichen sclerosus of the vulva symptomatically improved with Temovate ointment. Plan: 1. Diagnostic mammogram of the right breast will be done today. If this is benign, conservative management and I have asked her to avoid rubbing and checking the area frequently. She can use some warm compresses, if this feels good. She can also use ibuprofen as needed. I have also asked that she try to cut back on caffeine to see if this helps. 2. Continue Temovate ointment as needed for vulvar itching. The electronic prescription will be sent to [facility], a mail order pharmacy. 3. She will return in approximately 3-4 months for her annual examination and as needed. Time spent with the patient: 25 minutes
--- NOTE | 2022-06-29 13:13 | P.PN ---
Progress Note - Text Progress Note Date: 06/29/22 OUTPATIENT FOLLOW-UP NOTE TEST(S)/RESULTS: Test results from 06/28/2022 include benign right diagnostic mammogram which included a right breast ultrasound as well. Bone density showed osteopenia. METHOD OF NOTIFICATION: The patient was notified by phone. PATIENT COMMENTS: The patient is requesting a paper prescription for the Temovate ointment. DIAGNOSIS: Benign right diagnostic mammogram and osteopenia. DISCUSSION: I have stressed the importance of adequate calcium, vitamin D, and regular exercise. We will plan on repeating the bone density test in a partially 2-3 years. A paper prescription for the Temovate ointment 0.05% used twice a day as needed for vulvar pruritus, dispense 30 g tube, with 1 refill, will be mailed to the patient.. PLAN: As above. She will make an appointment for approximately 4 months for her well woman exam and bilateral screening mammogram.
== END ==
LOC: WWCWWP 11:17
PROVIDERS: ATTEND Obstetrics & Gynecology
DX: Z12.31 Encounter for screening mammogram for malignant neoplasm of breast (principal); M85.9 Disorder of bone density and structure, unspecified; Z88.1 Allergy status to other antibiotic agents; Z88.0 Allergy status to penicillin; Z88.8 Allergy status to other drugs, medicaments and biological substances; Z91.018 Allergy to other foods

== ENCOUNTER → 2023-12-05 | Outpatient (CLI) | payer MEDICARE, OTHER ==
[2023-12-05 16:04] VITALS: BP 132/77; PULSE 70; RESP 17; TEMP 97.8
--- NOTE | 2023-12-05 16:42 | P.HPOB ---
History of Present Illness H&P Date: 12/05/23 Chief Complaint: The patient is here for her routine gynecologic exam and ma mmogram. This is a 73-year-old G6, P5 with an LMP of 2006. Patient states her vulvar and perianal itching can get severe at times. She has been trying to use the Temovate ointment infrequently and will typically use it 2 or 3 times in 1 week. She is otherwise without gynecologic complaints. Review of Systems The patient has gained 21 pounds over the last 2 years. She denies respiratory, cardiac, or G.I. problems. Past Medical History Past Medical History: Cancer, Musculoskeletal Disorder Additional Past Medical History / Comment(s): Left shoulder problems after a fall. Migraine headaches diet controlled and Mnire's disease. Basal cell skin cancer above right lip. 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 History of Any Multi-Drug Resistant Organisms: None Reported Past Surgical History: Orthopedic Surgery, Tonsillectomy Additional Past Surgical History / Comment(s): Cataract surgery. Colonoscopies in 2018(next after 5yr). Removal of basal cell skin cancer above right lip. left shoulder repar 08/2020. 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 - Past Family History Son(s) Additional Family Medical History / Comment(s): Child of a cardiac defect at 2 days after . Medications and Allergies Home Medications Medication Instructions Recorded Confirmed Type Magnesium 1 tab PO DAILY 06/05/18 12/05/23 History Olmesartan/Hydrochlorothiazide 1 tab PO DAILY 06/05/18 12/05/23 History [Benicar Hct 20-12.5 mg Tablet] Vitamin B Complex 1 tab PO DAILY 06/05/18 12/05/23 History Ibuprofen [Motrin] 600 mg PO Q6HR PRN #8 day 07/17/18 12/05/23 Rx Clobetasol Propionate [Temovate] 1 applic TP BID PRN #30 gram 06/28/22 12/05/23 Rx Allergies Allergy/AdvReac Type Severity Reaction Status Date / Time midazolam [From Versed] AdvReac Severe Hallucinati Verified 12/05/23 15:38 ons Penicillins AdvReac Severe hives Verified 12/05/23 15:38 clindamycin AdvReac Diarrhea Verified 12/05/23 15:38 monosodium glutamate [MSG] AdvReac Diarrhea Verified 12/05/23 15:38 Ringer's solution,lactated AdvReac Headache Verified 12/05/23 15:38 Exam Vital Signs Temp Pulse Resp BP Pulse Ox 12/05/23 15:38 97.8 F 70 17 132/77 97 Intake and Output 12/05/23 12/05/23 12/05/23 06:59 14:59 22:59 Other: Weight 97.069 kg Height 5 feet 6 inches, weight 214 pounds, BMI 34.5. This is a well-developed well-nourished white female who is alert and oriented times 3 in no acute distress. HEENT: Within normal limits. NECK: Supple without mass or thyromegaly. CHEST AND LUNGS: Clear to auscultation. HEART: Regular rate and rhythm. BREASTS: Are without mass or discharge. AXILLARY EXAM: Negative for adenopathy. BACK: Negative for CVA tenderness. ABDOMEN: Soft, nontender, without palpable masses. PELVIC EXAM: External genitalia reveals mild to moderate atrophy with symmetric pallor involving the labia minora, perineum and approaches the perianal area. Lateral to the pallor there is generalized erythema involving the labia majora extending down to the perianal area. There is no excoriation, ulceration, or focal lesions. Cervix and vagina appear normal with mild atrophy. There is no unusual discharge. There is a grade 1-2 cystocele which is stable. There is no other evidence of prolapse. The uterus is midposition, nongravid size and nontender. There are no palpable adnexal masses or tenderness. RECTAL EXAM: Rectovaginal exam is negative for mass or tenderness and is negative for occult blood. EXTREMITIES: Nontender. IMPRESSION: 1. 73-year-old menopausal female with stable grade 1-2 cystocele which is asymptomatic. 2. Lichen sclerosus of the vulva extending to the perineum and perianal areas. Symptomatically not well-controlled with infrequent Temovate use. 3. History of osteopenia. PLAN: 1. Pap smears have been discontinued. 2. Self breast awareness was discussed with the patient. We have also dis cussed symptoms associated with inflammatory breast cancer. 3. Screening mammogram will be done today. 4. We have had a long discussion regarding lichen sclerosus of the vulva. Instead of using the Temovate as infrequently as possible, I have asked her to use the ointment twice a day for 2 weeks and to use it once a day for 1 additional week. I am hoping this will control her symptoms better than infrequent sporadic use. She can then use it as needed. On the days she is not using the Temovate ointment, she can use petroleum jelly as a protective layer. She will call if her symptoms are not controlled, if worsening, or focal lesions. The prescription for the Temovate 0.05% ointment will be sent to [facility] on [address]. 5. Osteoporosis prevention was discussed. I have stressed the importance of adequate calcium, vitamin D and regular exercise. Recommended amounts of calcium and vitamin D were also discussed. Plan on repeating the bone density test next year. 6. She was advised to return in one year for her annual well woman exam.
== END ==
LOC: WWCWWP 15:28
PROVIDERS: ATTEND Obstetrics & Gynecology
DX: Z01.419 Encounter for gynecological examination (general) (routine) without abnormal findings (principal); Z12.31 Encounter for screening mammogram for malignant neoplasm of breast; N81.10 Cystocele, unspecified; N90.4 Leukoplakia of vulva; L90.0 Lichen sclerosus et atrophicus; Z78.0 Asymptomatic menopausal state; Z87.39 Personal history of other diseases of the musculoskeletal system and connective tissue; Z88.0 Allergy status to penicillin; Z88.1 Allergy status to other antibiotic agents; Z88.8 Allergy status to other drugs, medicaments and biological substances
CPT/HCPCS: 77063; 77067

== ENCOUNTER 2025-01-24 11:52 | Inpatient (IN) | payer MEDICARE, OTHER ==
--- NOTE | 2025-01-24 12:13 | ED ---
Nausea/Vomiting/Diarrhea HPI - General Chief complaint: Nausea/Vomiting/Diarrhea Stated complaint: Headache,Fever Time Seen by Provider: 01/24/25 12:12 Source: patient, RN notes reviewed Mode of arrival: ambulatory Limitations: no limitations - History of Present Illness Initial comments: 74-year-old female presented ER for evaluation of nausea, vomiting and diarrhea. Patient reports for the past 2 to 3 days she has felt overall unwell. She endorses fevers, nausea, vomiting, diarrhea and left lower quadrant abdominal pain. She denies any hematochezia, coffee-ground emesis, hematic emesis or melena. Patient does report a history of diverticulitis and has been treated with Flagyl and another antibiotic she is unsure of over the past 3 weeks. Patient denies any urinary complaints or abnormal vaginal bleeding or discharge. She has not taken anything for current symptoms. She states she is unable to keep anything down including water. Patient denies prior abdominal surgeries. No other complaints. - Related Data Home Medications Medication Instructions Recorded Confirmed Citalopram Hydrobromide [CeleXA] 20 mg PO DAILY 01/24/25 01/24/25 Empagliflozin [Jardiance] 10 mg PO DAILY 01/24/25 01/24/25 Olmesartan/Hydrochlorothiazide 0.5 - 1 tab PO DAILY 01/24/25 01/24/25 [Olmesartan-Hctz 40-25 mg Tab] Allergies Allergy/AdvReac Type Severity Reaction Status Date / Time midazolam [From Versed] AdvReac Severe Hallucinati Verified 01/24/25 16:52 ons Penicillins AdvReac Severe hives Verified 01/24/25 16:52 clindamycin AdvReac Diarrhea Verified 01/24/25 16:52 monosodium glutamate [MSG] AdvReac Diarrhea Verified 01/24/25 16:52 Ringer's solution,lactated AdvReac Headache Verified 01/24/25 16:52 Review of Systems ROS Statement: Those systems with pertinent positive or pertinent negative responses have been documented in the HPI. ROS Other: All systems not noted in ROS Statement are negative. Past Medical History Past Medical History: Cancer, Musculoskeletal Disorder Additional Past Medical History / Comment(s): Left shoulder problems after a fall. Migraine headaches diet controlled and Mnire's disease. Basal cell skin cancer above right lip. 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 History of Any Multi-Drug Resistant Organisms: None Reported Past Surgical History: Orthopedic Surgery, Tonsillectomy Additional Past Surgical History / Comment(s): Cataract surgery. Colonoscopies in 2018(next after 5yr). Removal of basal cell skin cancer above right lip. left shoulder repar 08/2020. Past Anesthesia/Blood Transfusion Reactions: No Reported Reaction Past Psychological History: No Psychological Hx Reported Smoking Status: Never smoker Past Alcohol Use History: Occasional Past Drug Use History: None Reported - Past Family History Son(s) Additional Family Medical History / Comment(s): Child of a cardiac defect at 2 days after . General Exam - General Exam Comments Initial Comments: Visual Physical Exam Vital signs reviewed General: Well-appearing, nontoxic, no acute distress. Head: Normocephalic, atraumatic Eyes: PERRLA, EOMI ENT: Airway patent Chest: Nonlabored breathing Skin: No visual rash, normal skin tone Neuro: Alert and oriented 3 Musculoskeletal: No gross abnormalities Limitations: no limitations General appearance: alert, in no apparent distress Respiratory exam: Present: normal lung sounds bilaterally. Absent: respiratory distress, wheezes, rales, rhonchi, stridor Cardiovascular Exam: Present: normal rhythm, tachycardia, systolic murmur (Aortic) GI/Abdominal exam: Present: soft, tenderness (Exquisite tenderness left lower quadrant), normal bowel sounds Extremities exam: Present: normal inspection, full ROM, normal capillary refill. Absent: tenderness, pedal edema, joint swelling, calf tenderness Neurological exam: Present: alert, oriented X3, CN II-XII intact Skin exam: Present: warm, dry, intact, normal color. Absent: rash Course Vital Signs 01/24/25 01/24/25 01/24/25 12:03 14:47 15:30 Temperature 99.6 F 103 F H 102.6 F H Pulse Rate 105 H 89 Respiratory 18 16 Rate Blood Pressure 102/60 144/76 O2 Sat by Pulse 97 98 Oximetry - Reevaluation(s) Reevaluation #1: 01/24/25 16:31 Case discussed with [facility], Dr. Engel who accepts admission. Medical Decision Making - Medical Decision Making I performed the quick note portion of this chart. Electronically signed by Agnieszka Stariha, PA-C Was pt. sent in by a medical professional or institution (, PA, FINANCIAL SERVICES SALES REPRESENTATIVE, urgent care, hospital, or [place] health care facility...) When possible be specific @ -No Did you speak to anyone other than the patient for history (EMS, parent, family, police, friend...)? What history was obtained from this source @ -No Did you review nursing and triage notes (agree or disagree)? Why? @ -I reviewed and agree with nursing and triage notes Were old charts reviewed (outside hosp., previous admission, EMS record, old EKG, old radiological studies, urgent care reports/EKG's, [place] health care facility records)? Report findings @ -CT ab and pelvis reviewed from 01-14-2025 showing left-sided colonic diverticulosis extensive within the sigmoid colon. No convincing evidence of acute diverticulitis. Moderate to severe hepatic steatosis. Differential Diagnosis (chest pain, altered mental status, abdominal pain women, abdominal pain men, vaginal bleeding, weakness, fever, dyspnea, syncope, headache, dizziness, GI bleed, back pain, seizure, CVA, palpatations, mental health, musculoskeletal)? @ -Differential Abdominal Pain Women:Appendicitis, Cholecystitis, diverticulosis, ischemic bowel, pancreatitis, hepatitis, UTI, gastroenteritis, AAA, incarcerated hernia, bowel obstruction, constipation, inflammatory bowel, hepatitis, peptic ulcer disease, splenic infarction, perforated viscus, vulvitis, ovarian torsion, PID, kidney stone, placenta abruption, this is not meant to be an all-inclusive list EKG interpreted by me (3pts min.). @ -As above X-rays interpreted by me (1pt min.). @ -None done CT interpreted by me (1pt min.). @ -CT ab and pelvis showing acute uncomplicated diverticulitis of the sigmoid colon. U/S interpreted by me (1pt. min.). @ -None done What testing was considered but not performed or refused? (CT, X-rays, U/S, labs)? Why? @ -None What meds were considered but not given or refused? Why? @ -None Did you discuss the management of the patient with other professionals (professionals i.e. , PA, FINANCIAL SERVICES SALES REPRESENTATIVE, lab, RT, psych nurse, social insurance analyst, color dipper, teacher, soil science technical officer, case management specialist)? Give summary @ -Yes, case discussed with [facility], Dr. Ugalde, for admission. Was smoking cessation discussed for >3mins.? @ -No Was critical care preformed (if so, how long)? @ -No Were there social determinants of health that impacted care today? How? (Homelessness, low income, unemployed, alcoholism, drug addiction, transportation, low edu. Level, literacy, decrease access to med. care, alf, rehab)? @ -No Was there de-escalation of care discussed even if they declined (Discuss DNR or withdrawal of care, Hospice)? DNR status @ -No What co-morbidities impacted this encounter? (DM, HTN, Smoking, COPD, CAD, Cancer, CVA, ARF, Chemo, Hep., AIDS, mental health diagnosis, sleep apnea, morbid obesity)? @ -History of diverticulitis Was patient admitted / discharged? Hospital course, mention meds given and route, prescriptions, significant lab abnormalities, going to OR and other pertinent info. @ -Admitted. 74-year-old female presented to ER for evaluation of nausea, vomiting, diarrhea and fevers. Workup initiated in ER waiting room where laboratory studies were obtained. Patient initially with a temperature 99.6 with tachycardia at 105 bpm vitals otherwise stable. Upon rooming, at 14:47 history and physical exam completed patient also found to be febrile at 103Fmax. There is exquisite left lower quadrant abdominal tenderness with normal bowel sounds no rebound or guarding. laboratory studies obtained remarkable for leukocytosis of 14.4 with a left shift. Lactic 1.2. C. difficile positive. Viral swabs negative. CT abdomen pelvis showing acute uncomplicated diverticulitis. Blood cultures obtained. Patient met sepsis criteria at 12:59. As patient met sepsis criteria Rocephin initially ordered at 15:40. Positive C. difficile result reported at 15:50 to CURRICULUM COACH. Diverticulitis infection identified at 16: 11. Patient received sepsis bolus at 30 mL/kg and started on maintenance fluid at 130 cc/h. Due to positive C. difficile patient started on p.o. vancomycin. Admission considered given C. difficile, diverticulitis and sepsis this was accepted by [facility], . ID on consult. Patient provided with Tylenol, ibuprofen and Zofran for fever and symptom control in the emergency department, with improvement. Patient been in stable condition for further evaluation and treatment. Case discussed with ED attending, . Undiagnosed new problem with uncertain prognosis? @ -No Drug Therapy requiring intensive monitoring for toxicity (Heparin, Nitro, Insulin, Cardizem)? @ -No Were any procedures done? @ -No Diagnosis/symptom? @ -Sepsis/C. difficile/diverticulitis Acute, or Chronic, or Acute on Chronic? @ -Acute Uncomplicated (without systemic symptoms) or Complicated (systemic symptoms)? @ -Complicated Side effects of treatment? @ -No Exacerbation, Progression, or Severe Exacerbation? @ -No Poses a threat to life or bodily function? How? (Chest pain, USA, CT, pneumonia, PE, COPD, DKA, ARF, appy, cholecystitis, CVA, Diverticulitis, Homicidal, Suicidal, threat to staff... and all critical care pts) @ -Yes - Lab Data Result diagrams: 01/24/25 12:52 01/24/25 12:52 Lab Results 01/24/25 01/24/25 01/24/25 Range/Units 12:52 12:52 12:52 WBC 14.44 H (4.50-10.00) 10*3/uL RBC 5.06 (4.10-5.20) 10*6/uL Hgb 15.2 H (12.0-15.0) g/dL Hct 44.4 (37.2-46.3) % MCV 87.7 (80.0-97.0) fL MCH 30.0 (27.0-32.0) pg MCHC 34.2 (32.0-37.0) g/dL Plt Count 247 (140-440) 10*3/uL MPV 10.1 (9.5-12.2) fL Immature Gran % (Auto) 0.3 % Neutrophils % 86.5 % Lymphocytes % 5.6 % Monocytes % 7.3 % Eosinophils % 0.0 % Basophils % 0.3 % Immature Gran # 0.05 H (0.00-0.04) 10*3/uL Neutrophils # 12.48 H (1.80-7.70) 10*3/uL Lymphocytes # 0.81 L (0.90-5.00) 10*3/uL Monocytes # 1.05 H (0.20-1.00) 10*3/uL Eosinophils # 0.00 L (0.04-0.35) 10*3/uL Basophils # 0.05 (0.00-0.10) 10*3/uL Sodium 134 L (137-145) mmol/L Potassium 3.8 (3.5-5.1) mmol/L Chloride 99 (98-107) mmol/L Carbon Dioxide 21 L (22-30) mmol/L Anion Gap 14 mmol/L BUN 15 (7-17) mg/dL Creatinine 1.25 H (0.52-1.04) mg/dL Est GFR (CKD-EPI)AfAm 50 (>60 ml/min/1.73 sqM) Est GFR (CKD-EPI)NonAf 43 (>60 ml/min/1.73 sqM) Glucose 129 H (74-99) mg/dL Plasma Lactic Acid Tuan 1.2 (0.7-2.0) mmol/L Calcium 9.2 (8.4-10.2) mg/dL Total Bilirubin 1.0 (0.2-1.3) mg/dL AST 33 (14-36) U/L ALT 25 (4-34) U/L Alkaline Phosphatase 62 (38-126) U/L Total Protein 7.2 (6.3-8.2) g/dL Albumin 4.3 (3.5-5.0) g/dL Amylase 69 (30-110) U/L Lipase 25 (23-300) U/L C. difficile (EIA) Intrp (Negative) Influenza Type A (PCR) (Not Detectd) Influenza Type B (PCR) (Not Detectd) RSV (PCR) (Not Detectd) SARS-CoV-2 (PCR) (Not Detectd) 01/24/25 01/24/25 Range/Units 14:45 15:19 WBC (4.50-10.00) 10*3/uL RBC (4.10-5.20) 10*6/uL Hgb (12.0-15.0) g/dL Hct (37.2-46.3) % MCV (80.0-97.0) fL MCH (27.0-32.0) pg MCHC (32.0-37.0) g/dL Plt Count (140-440) 10*3/uL MPV (9.5-12.2) fL Immature Gran % (Auto) % Neutrophils % % Lymphocytes % % Monocytes % % Eosinophils % % Basophils % % Immature Gran # (0.00-0.04) 10*3/uL Neutrophils # (1.80-7.70) 10*3/uL Lymphocytes # (0.90-5.00) 10*3/uL Monocytes # (0.20-1.00) 10*3/uL Eosinophils # (0.04-0.35) 10*3/uL Basophils # (0.00-0.10) 10*3/uL Sodium (137-145) mmol/L Potassium (3.5-5.1) mmol/L Chloride (98-107) mmol/L Carbon Dioxide (22-30) mmol/L Anion Gap mmol/L BUN (7-17) mg/dL Creatinine (0.52-1.04) mg/dL Est GFR (CKD-EPI)AfAm (>60 ml/min/1.73 sqM) Est GFR (CKD-EPI)NonAf (>60 ml/min/1.73 sqM) Glucose (74-99) mg/dL Plasma Lactic Acid Tuan (0.7-2.0) mmol/L Calcium (8.4-10.2) mg/dL Total Bilirubin (0.2-1.3) mg/dL AST (14-36) U/L ALT (4-34) U/L Alkaline Phosphatase (38-126) U/L Total Protein (6.3-8.2) g/dL Albumin (3.5-5.0) g/dL Amylase (30-110) U/L Lipase (23-300) U/L C. difficile (EIA) Intrp Positive A (Negative) Influenza Type A (PCR) Not Detected (Not Detectd) Influenza Type B (PCR) Not Detected (Not Detectd) RSV (PCR) Not Detected (Not Detectd) SARS-CoV-2 (PCR) Not Detected (Not Detectd) - EKG Data -: EKG Interpreted by Me EKG Comments: EKG taken at 15: 24 showing a sinus tachycardia. No ST depressions or elevations. No T wave inversions. Ventricular rate 100, OR interval 180, QRS duration 127, QT/QTc 371/428. - Radiology Data Radiology results: report reviewed, image reviewed Disposition Clinical Impression: Acute diverticulitis, C. difficile colitis, Sepsis Disposition: ADMITTED IP TO THIS HOSP Condition: Stable Referrals: Michael Bobo MD [Primary Care Provider] - 1-2 days Time of Disposition: 17:03
[2025-01-24 13:00] LABS: Basophils # (A) 0.05 10*3/uL (0.00-0.10); Basophils % (A) 0.3 %; HCT 44.4 % (37.2-46.3); HGB 15.2 g/dL (12.0-15.0); Lymphocytes # (A) 0.81 10*3/uL (0.90-5.00); Lymphocytes % (A) 5.6 %; MCHC 34.2 g/dL (32.0-37.0); MCV 87.7 fL (80.0-97.0); Mean Platelet Volume 10.1 fL (9.5-12.2); Monocytes # (A) 1.05 10*3/uL (0.20-1.00); Monocytes % (A) 7.3 %; Neutrophils # (A) 12.48 10*3/uL (1.80-7.70); Neutrophils % (A) 86.5 %; Platelet Count 247 10*3/uL (140-440); RBC 5.06 10*6/uL (4.10-5.20); RDW 12.6 % (11.5-14.5); WBC 14.44 10*3/uL (4.50-10.00)
[2025-01-24 13:11] LABS: ALT 25 U/L (4-34); AST 33 U/L (14-36); African American GFR (CKD) 50 (>60 ml/min/1.73 sqM); Albumin 4.3 g/dL (3.5-5.0); Alkaline Phosphatase 62 U/L (38-126); Amylase 69 U/L (30-110); Anion Gap 14 mmol/L; Blood Urea Nitrogen 15 mg/dL (7-17); Calcium 9.2 mg/dL (8.4-10.2); Carbon Dioxide 21 mmol/L (22-30); Chloride 99 mmol/L (98-107); Glucose 129 mg/dL (74-99); Lipase 25 U/L (23-300); Non-African American GFR(CKD) 43 (>60 ml/min/1.73 sqM); Potassium 3.8 mmol/L (3.5-5.1); Sodium 134 mmol/L (137-145); Total Protein 7.2 g/dL (6.3-8.2)
[2025-01-24] MEDS: ACETAMINOPHEN TAB 500 MG TAB PO STA (15:20)
[2025-01-24] MEDS: SODIUM CHLORIDE 0.9% 1,000 ML IV SCH ×2 (15:20→23:27)
[2025-01-24] MEDS: ONDANSETRON 4 MG/2 ML VIAL IVP STA (15:25)
[2025-01-24] MEDS: KETOROLAC 15 MG/ML 1 ML VIAL IVP STA (15:25)
[2025-01-24 16:02] LABS: Influenza A Not Detected (Not Detectd); Influenza B Not Detected (Not Detectd); RSV Not Detected (Not Detectd)
--- NOTE | 2025-01-24 16:18 | CT ---
EXAMINATION TYPE: CT abdomen pelvis w con CT DLP: 1048.4 mGycm, Automated exposure control for dose reduction was used. DATE OF EXAM: 01/24/2025 4:09 PM COMPARISON: CT abdomen pelvis 01/14/2025 CLINICAL INDICATION:Female, 74 years old with history of abd pain fever; Abdominal pain and fever TECHNIQUE: Standard CT of the abdomen and pelvis following the administration of 100 cc of Isovue 3 00 IV contrast material. Coronal and sagittal reformats were performed. FINDINGS: LOWER CHEST: Minimal left lower lobe dependent subsegmental atelectasis. Small aortic valvular calcif ications. Trace pericardial effusion. ABDOMEN LIVER: Diffusely hypoattenuating parenchyma. No focal lesion identified. GALLBLADDER AND BILE DUCTS: Unremarkable. PANCREAS: Moderate generalized atrophy. SPLEEN: Scattered calcified granulomas. ADRENAL GLANDS: Unremarkable. KIDNEYS AND URETERS: No evidence of hydronephrosis or renal calculus. The kidneys enhance symmetrical ly. Couple of bilateral renal sinus cysts. No follow-up recommended. PELVIS BLADDER: Unremarkable REPRODUCTIVE: Unremarkable. ABDOMEN & PELVIS STOMACH AND BOWEL: Stomach and duodenum are unremarkable. Circumferential wall thickening with divert icula and some fat stranding involving the descending colon and sigmoid colon. No surrounding organiz ed fluid collection. The appendix is not well visualized. No evidence of bowel obstruction. PERITONEUM: No evidence of pneumoperitoneum or free fluid. VASCULATURE: Mild atherosclerotic calcifications are present throughout the abdominal aorta and its b ranches. No evidence of aortic aneurysm. . Pelvic phleboliths. MUSCULOSKELETAL: No acute osseous abnormalities. Multilevel degenerative disc disease which is most p ronounced at L4-L5. LYMPH NODES: No evidence for lymphadenopathy. SOFT TISSUE/ABDOMINAL WALL: Unremarkable IMPRESSION: 1. Acute uncomplicated diverticulitis/colitis of the descending colon/sigmoid colon. 2. Hepatic steatosis. [facility], , 01/24/2025 4:16 PM
[2025-01-24] MEDS ORDERED: NALOXONE 0.4 MG/ML 1 ML VIAL IV PRN (16:31)
[2025-01-24] MEDS: VANCOMYCIN 125 MG CAPSULE PO SCH (17:07)
[2025-01-24] MEDS: SODIUM CHLORIDE 0.9% 1,000 ML IV STA (17:49)
[2025-01-24] MEDS: ONDANSETRON 4 MG/2 ML VIAL IVP PRN (19:16)
[2025-01-24] MEDS: ACETAMINOPHEN TAB 325 MG TAB PO PRN (20:08)
[2025-01-24 20:23] LABS: Appearance,Urine Clear (Clear); Bilirubin,Urine Negative (Negative); Blood,Urine Trace (Negative); Color,Urine Yellow; Glucose,Urine (UA) 4+ (Negative); Leukocyte Esterase,Urine Negative (Negative); Mucus,Urine Rare /hpf; Nitrite,Urine Negative (Negative); PH, Urine 5.5 (5.0-8.0); Protein,Urine Trace (Negative); RBC,Urine 4 /hpf (0-5); Squamous Epithelial Cell,Urine 3 /hpf (0-4); Urobilinogen,Urine <2.0 mg/dL (<2.0); WBC,Urine 3 /hpf (0-5)
[2025-01-24 20:24] LABS: Specific Gravity,Urine >1.050 (1.001-1.035)
[2025-01-24 20:25] LABS: Ketones,Urine 2+ (Negative)
[2025-01-24] MEDS: KETOROLAC 15 MG/ML 1 ML VIAL IVP PRN (21:25)
--- NOTE | 2025-01-24 22:56 | P.HPIM ---
History of Present Illness H&P Date: 01/24/25 Chief Complaint: Nausea vomiting and diarrhea Patient is a 74-year-old female with a past medical history of hypertension, migraine headaches, Mnire's disease, basal cell skin cancer above right lip and prior history of smoking. Patient presents to ER with complaints of d ecreased appetite and not able to eat. She was also having nausea vomiting and diarrhea and abdominal pain abdominal pain is mainly diffuse. Patient also states that she been having urine output today. Patient completed antibiotics for diverticulitis about 2 weeks ago. Patient did have fever with Tmax 103 on admission.. EKG showed sinus tachycardia CT of abdomen pelvis showed acute uncomplicated diverticulitis/colitis of the descending colon/sigmoid colon. Hepatic steatosis. Laboratory data showed WBC 14.4 hemoglobin 15.2 and platelets 247 Sodium 134 potassium 3.8 chloride 99 bicarb is 21 BUN 15 and creatinine 1.25 and blood sugar 129 liver enzymes are not elevated Urinalysis showed clear with 4+ glucose and 2+ ketones C. difficile stool sample is positive Influenza A B RSV and COVID-19 PCR not detected. Review of Systems Constitutional: Patient does have fever and chills s . Generalized weakness and fatigue Abdomen: Nausea vomiting abdominal pain and diarrhea Cardiovascular: Patient denies any chest pain or short of breath no palpitations. Respiratory: patient denied any cough or sputum production. No shortness of breath Neurologic: Patient denied any numbness or tingling. no headache. Musculoskeletal: Patient denies any complaints of joint swelling or deformity. Skin: Negative Psychiatric: Negative Endocrine: No heat or cold intolerance. No recent weight gain. Genitourinary: No dysuria or hematuria. All other 14 point ROS negative except the above Past Medical History Past Medical History: Cancer, Hypertension, Musculoskeletal Disorder Additional Past Medical History / Comment(s): Left shoulder problems after a fall. Migraine headaches diet controlled and Mnire's disease. Basal cell skin cancer above right lip. 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 Anu pected lichen sclerosus of the vulva. History of Any Multi-Drug Resistant Organisms: C-DIFF Date of last positivie culture/infection: 01/24/25 MDRO Source:: stool Past Surgical History: Orthopedic Surgery, Tonsillectomy Additional Past Surgical History / Comment(s): Cataract surgery. Colonoscopies in 2018(next after 5yr). Removal of basal cell skin cancer above right lip. left shoulder repar 08/2020. Past Anesthesia/Blood Transfusion Reactions: No Reported Reaction Past Psychological History: No Psychological Hx Reported Smoking Status: Former smoker Past Alcohol Use History: None Reported Past Drug Use History: None Reported - Past Family History Son(s) Additional Family Medical History / Comment(s): Child of a cardiac defect at 2 days after . Medications and Allergies Home Medications Medication Instructions Recorded Confirmed Type Citalopram Hydrobromide [CeleXA] 20 mg PO DAILY 01/24/25 01/24/25 History Empagliflozin [Jardiance] 10 mg PO DAILY 01/24/25 01/24/25 History Olmesartan/Hydrochlorothiazide 0.5 - 1 tab PO DAILY 01/24/25 01/24/25 History [Olmesartan-Hctz 40-25 mg Tab] Allergies Allergy/AdvReac Type Severity Reaction Status Date / Time midazolam [From Versed] AdvReac Severe Hallucinati Verified 01/24/25 16:52 ons Penicillins AdvReac Severe hives Verified 01/24/25 16:52 clindamycin AdvReac Diarrhea Verified 01/24/25 16:52 monosodium glutamate [MSG] AdvReac Diarrhea Verified 01/24/25 16:52 Ringer's solution,lactated AdvReac Headache Verified 01/24/25 16:52 Physical Exam Vitals: Vital Signs Temp Pulse Pulse Resp BP BP Pulse Ox 01/24/25 21:28 101.6 F H 91 16 116/63 92 L 01/24/25 20:05 102.8 F H 97 16 156/79 97 01/24/25 18:31 76 20 118/64 99 01/24/25 17:08 99.3 F 87 16 105/64 96 01/24/25 15:30 102.6 F H 89 16 144/76 98 01/24/25 14:47 103 F H 01/24/25 12:03 99.6 F 105 H 18 102/60 97 Intake and Output 01/24/25 01/24/25 01/24/25 06:59 14:59 22:59 Intake Total 240 Balance 240 Intake: Oral 240 Other: Weight 86.183 kg 86.183 kg PHYSICAL EXAMINATION: Patient is lying in the bed comfortably, no acute distress, awake alert and oriented.. HEENT: Normocephalic. Neck is supple. Pupils reactive. Nostrils clear. Oral cavity is moist. Neck reveals no JVD, carotid bruits, or thyromegaly. CHEST EXAMINATION: Trachea is central. Symmetrical expansion. Lung reddy clear to auscultation and percussion. CARDIAC: Normal S1, S2 with no gallops. No murmurs ABDOMEN: Soft. Bowel sounds present. Mild diffuse abdominal tenderness. No guarding or rigidity. No organomegaly. No abdominal bruits. Extremities: reveal no edema. No clubbing or cyanosis Neurologically awake, alert, oriented x3 with well-coordinated movements. No focal deficits noted Skin: No rash or skin lesions. Psychiatric: Coperative. Nonsuicidal Musculoskeletal: No joint swelling or deformity. Normal range of motion. Results CBC & Chem 7: 01/25/25 08:34 01/25/25 08:34 Labs: Abnormal Lab Results - Last 24 Hours (Table) 01/24/25 01/24/25 01/24/25 Range/Units 12:52 12:52 14:45 WBC 14.44 H (4.50-10.00) 10*3/uL Hgb 15.2 H (12.0-15.0) g/dL Immature Gran # 0.05 H (0.00-0.04) 10*3/uL Neutrophils # 12.48 H (1.80-7.70) 10*3/uL Lymphocytes # 0.81 L (0.90-5.00) 10*3/uL Monocytes # 1.05 H (0.20-1.00) 10*3/uL Eosinophils # 0.00 L (0.04-0.35) 10*3/uL Sodium 134 L (137-145) mmol/L Carbon Dioxide 21 L (22-30) mmol/L Creatinine 1.25 H (0.52-1.04) mg/dL Glucose 129 H (74-99) mg/dL Ur Specific Chappell (1.001-1.035) Urine Protein (Negative) Urine Glucose (UA) (Negative) Urine Ketones (Negative) Urine Blood (Negative) Urine Mucus (None) /hpf C. difficile (EIA) Intrp Positive A (Negative) 01/24/25 Range/Units 19:40 WBC (4.50-10.00) 10*3/uL Hgb (12.0-15.0) g/dL Immature Gran # (0.00-0.04) 10*3/uL Neutrophils # (1.80-7.70) 10*3/uL Lymphocytes # (0.90-5.00) 10*3/uL Monocytes # (0.20-1.00) 10*3/uL Eosinophils # (0.04-0.35) 10*3/uL Sodium (137-145) mmol/L Carbon Dioxide (22-30) mmol/L Creatinine (0.52-1.04) mg/dL Glucose (74-99) mg/dL Ur Specific Chappell >1.050 H (1.001-1.035) Urine Protein Trace H (Negative) Urine Glucose (UA) 4+ H (Negative) Urine Ketones 2+ H (Negative) Urine Blood Trace H (Negative) Urine Mucus Rare H (None) /hpf C. difficile (EIA) Intrp (Negative) Thrombosis Risk Factor Assmnt - DVT/VTE Prophylaxis DVT/VTE Prophylaxis: Pharmacologic Prophylaxis ordered - Choose All That Apply Any of the Below Risk Factors Present?: Yes Each Factor Represents 1 point: Obesity (BMI >25) Each Risk Factor Represents 2 Points: Age 61-74 years Other congenital or acquired thrombophilia - If yes, enter type in comment: No Thrombosis Risk Factor Assessment Total Risk Factor Score: 3 Thrombosis Risk Factor Assessment Level: Moderate Risk Assessment and Plan Assessment: Acute C. difficile colitis. CT showed colitis of the descending colon/sigmoid colon Sepsis secondary to above Recent antibiotic use for acute diverticulitis 2 weeks ago Hepatic steatosis Hypertension Migraine headaches History of Mnire's disease Basal cell skin cancer of the right lip Prior history of smoking DVT prophylaxis with heparin subcu Plan: Patient will be currently on IV hydration with normal saline. Continue with p.o. vancomycin and follow-up blood cultures. Home blood pressure medications on hold. Continue with GI and DVT prophylaxis. ID will be consulted and follow-up closely. Time with Patient: Greater than 30
[2025-01-24] MEDS: HEPARIN SODIUM,PORCINE 5,000 UNIT/ML 1 ML VIAL SQ SCH (23:27)
[2025-01-25] MEDS: CITALOPRAM HYDROBROMIDE 20 MG TAB PO SCH (07:50)
[2025-01-25 09:06] LABS: Basophils # (A) 0.02 10*3/uL (0.00-0.10); Basophils % (A) 0.3 %; HCT 38.1 % (37.2-46.3); HGB 12.7 g/dL (12.0-15.0); Lymphocytes # (A) 0.46 10*3/uL (0.90-5.00); Lymphocytes % (A) 6.7 %; MCH 29.9 pg (27.0-32.0); MCHC 33.3 g/dL (32.0-37.0); MCV 89.6 fL (80.0-97.0); Mean Platelet Volume 10.5 fL (9.5-12.2); Monocytes # (A) 0.36 10*3/uL (0.20-1.00); Monocytes % (A) 5.3 %; Neutrophils # (A) 5.97 10*3/uL (1.80-7.70); Neutrophils % (A) 87.6 %; Platelet Count 184 10*3/uL (140-440); RBC 4.25 10*6/uL (4.10-5.20); RDW 12.8 % (11.5-14.5); WBC 6.82 10*3/uL (4.50-10.00)
[2025-01-25 09:23] LABS: African American GFR (CKD) 56 (>60 ml/min/1.73 sqM); Anion Gap 9 mmol/L; Blood Urea Nitrogen 17 mg/dL (7-17); Calcium 7.9 mg/dL (8.4-10.2); Carbon Dioxide 19 mmol/L (22-30); Chloride 106 mmol/L (98-107); Glucose 141 mg/dL (74-99); Non-African American GFR(CKD) 49 (>60 ml/min/1.73 sqM); Potassium 3.2 mmol/L (3.5-5.1); Sodium 134 mmol/L (137-145)
[2025-01-25] MEDS ORDERED: Potassium Replacement Protocol 1 EACH MISC MISCELLANE PRN (14:28)
[2025-01-25] MEDS: POTASSIUM CHLORIDE ER 20 MEQ TAB.ER PO SCH (16:07)
--- NOTE | 2025-01-25 18:42 | P.CONS ---
History of Present Illness - Reason for Consult Consult date: 01/25/25 C. difficile, sepsis Requesting physician: Tamika Engel - Chief Complaint Diarrhea x few days - History of Present Illness Patient is a 74-year-old female past medical history working for hypertension Mnire's disease recently received antibiotic for episode of diverticulitis in the form of Cipro and Flagyl started having diarrhea few days ago patient did have a multiple episodes of loose stools denies any blood or mucus in the stool she also have crampy lower abdominal pain moderate intensity without radiation nausea but no vomiting recently the patient presented to hospital on arrival to the ER patient did have a temperature of 103 F patient was tachycardic but not hypotensive or hypoxic did have elevated white count urine negative stool for C. difficile positive did have abdominal pelvis CT did shows evidence of colitis involving the descending and sigmoid colon patient was started on oral vancomycin infectious disease was consulted for further management of antibiotic therapy Review of Systems Positive point and negatives has been mentioned in the HPI, complete review of systems was performed and all other systems are negative Past Medical History Past Medical History: Cancer, Hypertension, Musculoskeletal Disorder Additional Past Medical History / Comment(s): Left shoulder problems after a fall. Migraine headaches diet controlled and Mnire's disease. Basal cell skin cancer above right lip. 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 History of Any Multi-Drug Resistant Organisms: C-DIFF Year Discovered:: 01/24/25 MDRO Source:: stool Past Surgical History: Orthopedic Surgery, Tonsillectomy Additional Past Surgical History / Comment(s): Cataract surgery. Colonoscopies in 2018(next after 5yr). Removal of basal cell skin cancer above right lip. left shoulder repar 08/2020. Past Anesthesia/Blood Transfusion Reactions: No Reported Reaction Past Psychological History: No Psychological Hx Reported Smoking Status: Former smoker Past Alcohol Use History: None Reported Past Drug Use History: None Reported - Past Family History Son(s) Additional Family Medical History / Comment(s): Child of a cardiac defect at 2 days after . Medications and Allergies Home Medications Medication Instructions Recorded Confirmed Type Citalopram Hydrobromide [CeleXA] 20 mg PO DAILY 01/24/25 01/24/25 History Empagliflozin [Jardiance] 10 mg PO DAILY 01/24/25 01/24/25 History Olmesartan/Hydrochlorothiazide 0.5 - 1 tab PO DAILY 01/24/25 01/24/25 History [Olmesartan-Hctz 40-25 mg Tab] Allergies Allergy/AdvReac Type Severity Reaction Status Date / Time midazolam [From Versed] AdvReac Severe Hallucinati Verified 01/24/25 16:52 ons Penicillins AdvReac Severe hives Verified 01/24/25 16:52 clindamycin AdvReac Diarrhea Verified 01/24/25 16:52 monosodium glutamate [MSG] AdvReac Diarrhea Verified 01/24/25 16:52 Ringer's solution,lactated AdvReac Headache Verified 01/24/25 16:52 Physical Exam Vitals: Vital Signs Temp Pulse Pulse Resp BP BP Pulse Ox 01/25/25 07:53 101 F H 82 16 105/57 95 01/25/25 07:04 100.7 F H 01/25/25 05:48 102.6 F H 01/25/25 04:11 100.7 F H 01/25/25 03:15 102.7 F H 83 19 120/62 95 01/25/25 01:50 100.7 F H 01/25/25 01:08 103 F H 01/24/25 23:25 102.4 F H 85 17 146/69 96 01/24/25 21:28 101.6 F H 91 16 116/63 92 L 01/24/25 20:05 102.8 F H 97 16 156/79 97 01/24/25 18:31 76 20 118/64 99 01/24/25 17:08 99.3 F 87 16 105/64 96 01/24/25 15:30 102.6 F H 89 16 144/76 98 01/24/25 14:47 103 F H 01/24/25 12:03 99.6 F 105 H 18 102/60 97 Intake and Output 01/24/25 01/25/25 01/25/25 22:59 06:59 14:59 Intake Total 240 10 10 Balance 240 10 10 Intake: IV 10 10 Invasive Line 1 10 10 Oral 240 Other: Voiding Method Toilet Toilet # Voids 2 Weight 86.183 kg 86.2 kg GENERAL DESCRIPTION: Elderly female lying in bed, no distress. No tachypnea or accessory muscle of respiration use. HEENT: Shows Pallor , no scleral icterus. Oral mucous membrane is dry. NECK: Trachea central, no thyromegaly. LUNGS: Unlabored breathing. Clear to auscultation anteriorly. No wheeze or crackle. HEART: S1, S2, regular rate and rhythm. No loud murmur ABDOMEN: Soft, mild tenderness EXTREMITIES: No edema of feet. SKIN: No rash, no masses palpable. NEUROLOGICAL: The patient is awake, alert, oriented x3, mood and affect normal. Results CBC & Chem 7: 01/25/25 08:34 01/25/25 08:34 Labs: Abnormal Lab Results - Last 24 Hours (Table) 01/24/25 01/24/25 01/24/25 Range/Units 12:52 12:52 14:45 WBC 14.44 H (4.50-10.00) 10*3/uL Hgb 15.2 H (12.0-15.0) g/dL Immature Gran # 0.05 H (0.00-0.04) 10*3/uL Neutrophils # 12.48 H (1.80-7.70) 10*3/uL Lymphocytes # 0.81 L (0.90-5.00) 10*3/uL Monocytes # 1.05 H (0.20-1.00) 10*3/uL Eosinophils # 0.00 L (0.04-0.35) 10*3/uL Sodium 134 L (137-145) mmol/L Potassium (3.5-5.1) mmol/L Carbon Dioxide 21 L (22-30) mmol/L Creatinine 1.25 H (0.52-1.04) mg/dL Glucose 129 H (74-99) mg/dL Calcium (8.4-10.2) mg/dL Ur Specific [place] (1.001-1.035) Urine Protein (Negative) Urine Glucose (UA) (Negative) Urine Ketones (Negative) Urine Blood (Negative) Urine Mucus (None) /hpf C. difficile (EIA) Intrp Positive A (Negative) 01/24/25 01/25/25 01/25/25 Range/Units 19:40 08:34 08:34 WBC (4.50-10.00) 10*3/uL Hgb (12.0-15.0) g/dL Immature Gran # (0.00-0.04) 10*3/uL Neutrophils # (1.80-7.70) 10*3/uL Lymphocytes # 0.46 L (0.90-5.00) 10*3/uL Monocytes # (0.20-1.00) 10*3/uL Eosinophils # 0.00 L (0.04-0.35) 10*3/uL Sodium 134 L (137-145) mmol/L Potassium 3.2 L (3.5-5.1) mmol/L Carbon Dioxide 19 L (22-30) mmol/L Creatinine 1.12 H (0.52-1.04) mg/dL Glucose 141 H (74-99) mg/dL Calcium 7.9 L (8.4-10.2) mg/dL Ur Specific [place] >1.050 H (1.001-1.035) Urine Protein Trace H (Negative) Urine Glucose (UA) 4+ H (Negative) Urine Ketones 2+ H (Negative) Urine Blood Trace H (Negative) Urine Mucus Rare H (None) /hpf C. difficile (EIA) Intrp (Negative) Assessment and Plan (1) Allergy to multiple antibiotics Current Visit: Yes Status: Acute Code(s): Z88.1 - ALLERGY STATUS TO OTHER ANTIBIOTIC AGENTS SNOMED Code(s): 547146108 (2) C. difficile colitis Current Visit: Yes Status: Acute Code(s): A04.72 - ENTEROCOLITIS D/T CLOSTRIDIUM DIFFICILE, NOT SPCF RECUR SNOMED Code(s): 585959805 (3) Sepsis Current Visit: Yes Status: Acute Code(s): A41.9 - SEPSIS, UNSPECIFIED ORGANISM SNOMED Code(s): 34555678 Plan: 1patient presented to hospital with sepsis in this patient who did have fever tachycardia elevated white count meeting criteria for SIRS/sepsis source is acute colitis related to C. difficile in this patient who is recently been exposed to antibiotics for her episode of diverticulitis in the form of Cipro and Flagyl 2-we will increase the dose of vancomycin to 500 mg p.o. every 6 hours giving antibiotics sepsis and severe C. difficile colitis 3-patient has been instructed to increase her yogurt intake and avoid milk if did have a persistent diarrhea will add Questran for symptomatic relief 4-avoid antimotility agents Multiple question concern answered We will follow on clinical condition and cultures to further adjust medication if needed Thank you for this consultation we will follow the patient along with you Dictation was produced using [employer] dictation software. please excuse any grammatical, word or spelling errors. Time with Patient: Greater than 30
[2025-01-25] MEDS: VANCOMYCIN 125 MG CAPSULE PO SCH (20:38)
--- NOTE | 2025-01-25 20:53 | P.PN ---
Subjective Progress Note Date: 01/25/25 Patient is a 74-year-old female with a past medical history of hypertension, migraine headaches, Mnire's disease, basal cell skin cancer above right lip and prior history of smoking. Patient presents to ER with complaints of decreased appetite and not able to eat. She was also having nausea vomiting and diarrhea and abdominal pain abdominal pain is mainly diffuse. Patient also states that she been having urine output today. Patient completed antibiotics for diverticulitis about 2 weeks ago. Patient did have fever with Tmax 103 on admission.. EKG showed sinus tachycardia CT of abdomen pelvis showed acute uncomplicated diverticulitis/colitis of the descending colon/sigmoid colon. Hepatic steatosis. Laboratory data showed WBC 14.4 hemoglobin 15.2 and platelets 247 Sodium 134 potassium 3.8 chloride 99 bicarb is 21 BUN 15 and creatinine 1.25 and blood sugar 129 liver enzymes are not elevated Urinalysis showed clear with 4+ glucose and 2+ ketones C. difficile stool sample is positive Influenza A B RSV and COVID-19 PCR not detected. 01/25/2025 Patient is resting in the bed. Awake alert and oriented x 3. Feels better. Still having watery diarrhea. No complaints of abdominal pain. No nausea or vomiting. No cough or cold breath. Patient has been febrile overnight. Patient has been febrile overnight. Temperature 100.1 this afternoon. Cultures have been negative. ID is on board. Current medications reviewed. Objective - Vital Signs Vital signs: Vital Signs Temp 100.2 F H 01/25/25 20:40 Pulse 83 01/25/25 20:40 Resp 16 01/25/25 20:40 BP 136/74 01/25/25 20:40 Pulse Ox 95 01/25/25 20:40 FiO2 Intake & Output 01/25/25 01/25/25 01/26/25 06:59 18:59 06:59 Intake Total 250 20 Balance 250 20 Weight 86.2 kg Intake: IV 10 20 Invasive Line 1 10 20 Oral 240 Other: Voiding Method Toilet Toilet # Voids 2 # Bowel Movements 3 - Exam PHYSICAL EXAMINATION: Patient is lying in the bed comfortably, no acute distress, awake alert and oriented.. HEENT: Normocephalic. Neck is supple. Pupils reactive. Nostrils clear. Oral cavity is moist. Neck reveals no JVD, carotid bruits, or thyromegaly. CHEST EXAMINATION: Trachea is central. Symmetrical expansion. Lung reddy clear to auscultation and percussion. CARDIAC: Normal S1, S2 with no gallops. No murmurs ABDOMEN: Soft. Bowel sounds normal. No organomegaly. No abdominal bruits. Extremities: reveal no edema. No clubbing or cyanosis Neurologically awake, alert, oriented x3 with well-coordinated movements. No focal deficits noted Skin: No rash or skin lesions. Psychiatric: Coperative. Nonsuicidal Musculoskeletal: No joint swelling or deformity. Normal range of motion. - Labs CBC & Chem 7: 01/25/25 08:34 01/25/25 08:34 Labs: Abnormal Lab Results - Last 24 Hours (Table) 01/25/25 01/25/25 Range/Units 08:34 08:34 Lymphocytes # 0.46 L (0.90-5.00) 10*3/uL Eosinophils # 0.00 L (0.04-0.35) 10*3/uL Sodium 134 L (137-145) mmol/L Potassium 3.2 L (3.5-5.1) mmol/L Carbon Dioxide 19 L (22-30) mmol/L Creatinine 1.12 H (0.52-1.04) mg/dL Glucose 141 H (74-99) mg/dL Calcium 7.9 L (8.4-10.2) mg/dL Assessment and Plan Assessment: Acute C. difficile colitis. CT showed colitis of the descending colon/sigmoid colon Sepsis secondary to above Recent antibiotic use for acute diverticulitis 2 weeks ago Hepatic steatosis Hypertension Migraine headaches History of Mnire's disease Basal cell skin cancer of the right lip Prior history of smoking DVT prophylaxis with heparin subcu Plan: Patient will be currently on IV hydration with normal saline. Continue with p.o . vancomycin and follow-up blood cultures. Questran for diarrhea. Home blood pressure medications on hold. Continue with GI and DVT prophylaxis. ID will be consulted and follow-up closely. Time with Patient: Greater than 30
[2025-01-26 11:21] LABS: Basophils # (A) 0.01 10*3/uL (0.00-0.10); Basophils % (A) 0.2 %; Eosinophils # (A) 0.02 10*3/uL (0.04-0.35); Eosinophils % (A) 0.4 %; HCT 34.8 % (37.2-46.3); HGB 11.7 g/dL (12.0-15.0); Lymphocytes # (A) 0.89 10*3/uL (0.90-5.00); Lymphocytes % (A) 17.3 %; MCH 29.9 pg (27.0-32.0); MCHC 33.6 g/dL (32.0-37.0); Mean Platelet Volume 10.3 fL (9.5-12.2); Monocytes # (A) 0.55 10*3/uL (0.20-1.00); Monocytes % (A) 10.7 %; Neutrophils # (A) 3.64 10*3/uL (1.80-7.70); Platelet Count 177 10*3/uL (140-440); RBC 3.91 10*6/uL (4.10-5.20); WBC 5.13 10*3/uL (4.50-10.00)
[2025-01-26 11:37] LABS: African American GFR (CKD) 74 (>60 ml/min/1.73 sqM); Anion Gap 7 mmol/L; Blood Urea Nitrogen 10 mg/dL (7-17); Calcium 8.3 mg/dL (8.4-10.2); Carbon Dioxide 21 mmol/L (22-30); Chloride 108 mmol/L (98-107); Glucose 110 mg/dL (74-99); Non-African American GFR(CKD) 64 (>60 ml/min/1.73 sqM); Potassium 2.9 mmol/L (3.5-5.1); Sodium 136 mmol/L (137-145)
[2025-01-26] MEDS: POTASSIUM CHLORIDE ER 20 MEQ TAB.ER PO SCH ×3 (11:57→18:36)
[2025-01-26] MEDS: ZINC OXIDE PASTE (Z-GUARD) 1 APPLIC TOPICAL PRN (11:59)
[2025-01-26] MEDS: CHOLESTYRAMINE RESIN 4 GM PACKET PO SCH (20:25)
[2025-01-26] MEDS: VANCOMYCIN 125 MG CAPSULE PO SCH (23:03)
[2025-01-27] MEDS: POTASSIUM CHLORIDE ER 20 MEQ TAB.ER PO SCH (00:07)
[2025-01-27 07:32] LABS: Basophils # (A) 0.03 10*3/uL (0.00-0.10); Basophils % (A) 0.7 %; Eosinophils # (A) 0.06 10*3/uL (0.04-0.35); Eosinophils % (A) 1.3 %; HCT 33.2 % (37.2-46.3); HGB 11.2 g/dL (12.0-15.0); Lymphocytes # (A) 1.28 10*3/uL (0.90-5.00); Lymphocytes % (A) 27.9 %; MCH 29.7 pg (27.0-32.0); MCHC 33.7 g/dL (32.0-37.0); MCV 88.1 fL (80.0-97.0); Mean Platelet Volume 10.2 fL (9.5-12.2); Monocytes # (A) 0.52 10*3/uL (0.20-1.00); Monocytes % (A) 11.4 %; Neutrophils # (A) 2.67 10*3/uL (1.80-7.70); Neutrophils % (A) 58.3 %; Platelet Count 189 10*3/uL (140-440); RBC 3.77 10*6/uL (4.10-5.20); RDW 12.9 % (11.5-14.5); WBC 4.58 10*3/uL (4.50-10.00)
[2025-01-27 08:00] LABS: African American GFR (CKD) >90 (>60 ml/min/1.73 sqM); Anion Gap 4 mmol/L; Blood Urea Nitrogen 5 mg/dL (7-17); Carbon Dioxide 19 mmol/L (22-30); Chloride 115 mmol/L (98-107); Glucose 94 mg/dL (74-99); Non-African American GFR(CKD) 79 (>60 ml/min/1.73 sqM); Potassium 3.7 mmol/L (3.5-5.1); Sodium 138 mmol/L (137-145)
--- NOTE | 2025-01-27 13:15 | P.PN ---
Subjective Progress Note Date: 01/26/25 Principal diagnosis: Reason for follow-up is sepsis/C. difficile colitis Patient is a 74-year-old female past medical history working for hypertension Mnire's disease recently received antibiotic for episode of diverticulitis in the form of Cipro and Flagyl, patient subsequent vomiting diarrhea has been diagnosed with a significant lightest with sepsis prompting th is consultation On today's evaluation that is 01/26/2025, Patient is afebrile patient is currently on room air and denies having any shortness of breath, the patient denies any chest pain or cough, the patient denies any nausea vomiting still complaining of lower abdominal discomfort and diarrhea. Patient white count is 5.13, creatinine 0.90 Objective - Vital Signs Vital signs: Vital Signs Temp 99.5 F 01/26/25 15:20 Pulse 70 01/26/25 15:20 Resp 16 01/26/25 15:20 BP 137/75 01/26/25 15:20 Pulse Ox 98 01/26/25 15:20 FiO2 Intake & Output 01/25/25 01/26/25 01/26/25 18:59 06:59 18:59 Intake Total 20 260 500 Balance 20 260 500 Weight 85.5 kg Intake: IV 20 20 20 Invasive Line 1 20 20 20 Oral 240 480 Other: Voiding Method Toilet Toilet Toilet # Voids 2 # Bowel Movements 3 2 2 - Exam GENERAL DESCRIPTION: An elderly female lying in bed in no distress RESPIRATORY SYSTEM: Unlabored breathing , decreased breath sounds at bases HEART: S1 S2 regular rate and rhythm , ABDOMEN: Soft , mild lower abdominal tenderness EXTREMITIES: No edema feet - Labs CBC & Chem 7: 01/27/25 06:59 01/27/25 06:59 Labs: Abnormal Lab Results - Last 24 Hours (Table) 01/26/25 01/26/25 01/26/25 Range/Units 10:48 10:48 17:12 RBC 3.91 L (4.10-5.20) 10*6/uL Hgb 11.7 L (12.0-15.0) g/dL Hct 34.8 L (37.2-46.3) % Lymphocytes # 0.89 L (0.90-5.00) 10*3/uL Eosinophils # 0.02 L (0.04-0.35) 10*3/uL Sodium 136 L (137-145) mmol/L Potassium 2.9 L 2.9 L (3.5-5.1) mmol/L Chloride 108 H (98-107) mmol/L Carbon Dioxide 21 L (22-30) mmol/L Glucose 110 H (74-99) mg/dL Calcium 8.3 L (8.4-10.2) mg/dL Microbiology - Last 24 Hours (Table) 01/24/25 15:19 Blood Culture - Preliminary Blood Assessment and Plan (1) Allergy to multiple antibiotics Current Visit: Yes Status: Acute Code(s): Z88.1 - ALLERGY STATUS TO OTHER ANTIBIOTIC AGENTS SNOMED Code(s): 648290697 (2) C. difficile colitis Current Visit: Yes Status: Acute Code(s): A04.72 - ENTEROCOLITIS D/T CLOSTRIDIUM DIFFICILE, NOT SPCF RECUR SNOMED Code(s): 622670010 (3) Sepsis Current Visit: Yes Status: Acute Code(s): A41.9 - SEPSIS, UNSPECIFIED ORGANISM SNOMED Code(s): 23572402 Plan: 1patient presented to hospital with sepsis in this patient who did have fever tachycardia elevated white count meeting criteria for SIRS/sepsis source is acute colitis related to C. difficile in this patient who is recently been exposed to antibiotics for her episode of diverticulitis in the form of Cipro and Flagyl 2-patient antibiotic adjusted to vancomycin 500 mg every 6 hours and will add Questran for symptomatic relief encouraged to increase her yogurt intake Dictation was produced using [email or web address] dictation software. please excuse any grammatical, word or spelling errors. Time with Patient: Less than 30
--- NOTE | 2025-01-27 13:16 | P.PN ---
Subjective Progress Note Date: 01/27/25 Principal diagnosis: Reason for follow-up is sepsis/C. difficile colitis Patient is a 74-year-old female past medical history working for hypertension Mnire's disease recently received antibiotic for episode of diverticulitis in the form of Cipro and Flagyl, patient subsequent vomiting diarrhea has been diagnosed with a significant lightest with sepsis prompting th is consultation On today's evaluation that is 01/28/2024, patient did have a temperature of 98 F this morning and denies having any chills, patient is on room air and breathing comfortably no chest pain or cough, the patient did not have any nausea vomiting mention improvement in the abdominal pain and the diarrhea has slowed down only 3 episodes since morning. Patient white count is 4.58, creatinine 0.76 Objective - Vital Signs Vital signs: Vital Signs Temp 98.5 F 01/27/25 11:39 Pulse 66 01/27/25 11:39 Resp 14 01/27/25 11:39 BP 121/76 01/27/25 11:39 Pulse Ox 97 01/27/25 11:39 FiO2 Intake & Output 01/26/25 01/27/25 01/27/25 18:59 06:59 18:59 Intake Total 500 20 120 Balance 500 20 120 Intake: IV 20 20 Invasive Line 1 20 20 Oral 480 120 Other: Voiding Method Toilet Toilet Toilet # Voids 2 # Bowel Movements 6 7 - Exam GENERAL DESCRIPTION: An elderly female lying in bed in no distress RESPIRATORY SYSTEM: Unlabored breathing , decreased breath sounds at bases HEART: S1 S2 regular rate and rhythm , ABDOMEN: Soft , mild lower abdominal tenderness EXTREMITIES: No edema feet - Labs CBC & Chem 7: 01/27/25 06:59 01/27/25 06:59 Labs: Abnormal Lab Results - Last 24 Hours (Table) 01/26/25 01/27/25 01/27/25 Range/Units 17:12 06:59 06:59 RBC 3.77 L (4.10-5.20) 10*6/uL Hgb 11.2 L (12.0-15.0) g/dL Hct 33.2 L (37.2-46.3) % Potassium 2.9 L (3.5-5.1) mmol/L Chloride 115 H (98-107) mmol/L Carbon Dioxide 19 L (22-30) mmol/L BUN 5 L (7-17) mg/dL Calcium 8.0 L (8.4-10.2) mg/dL Microbiology - Last 24 Hours (Table) 01/24/25 15:19 Blood Culture - Preliminary Blood Assessment and Plan (1) Allergy to multiple antibiotics Current Visit: Yes Status: Acute Code(s): Z88.1 - ALLERGY STATUS TO OTHER ANTIBIOTIC AGENTS SNOMED Code(s): 158750316 (2) C. difficile colitis Current Visit: Yes Status: Acute Code(s): A04.72 - ENTEROCOLITIS D/T CLOSTRIDIUM DIFFICILE, NOT SPCF RECUR SNOMED Code(s): 137218874 (3) Sepsis Current Visit: Yes Status: Acute Code(s): A41.9 - SEPSIS, UNSPECIFIED O RGANISM SNOMED Code(s): 75812811 Plan: 1patient presented to hospital with sepsis in this patient who did have fever tachycardia elevated white count meeting criteria for SIRS/sepsis source is acute colitis related to C. difficile in this patient who is recently been exposed to antibiotics for her episode of diverticulitis in the form of Cipro and Flagyl 2-patient mention improvement in her diarrhea we will continue patient on vancomycin 500 mg every 6 hours and Questran for symptomatic relief, question concern answered Dictation was produced using [employer] dictation software. please excuse any grammatical, word or spelling errors.
[2025-01-28 07:44] LABS: African American GFR (CKD) 88 (>60 ml/min/1.73 sqM); Anion Gap 4 mmol/L; Blood Urea Nitrogen 4 mg/dL (7-17); Calcium 8.4 mg/dL (8.4-10.2); Carbon Dioxide 22 mmol/L (22-30); Chloride 112 mmol/L (98-107); Glucose 97 mg/dL (74-99); Non-African American GFR(CKD) 76 (>60 ml/min/1.73 sqM); Sodium 138 mmol/L (137-145)
[2025-01-28 09:50] VITALS: RESP 14
[2025-01-28 11:46] VITALS: BP 120/70; PULSE 62; TEMP 98.7
--- NOTE | 2025-01-28 14:36 | P.PN ---
Subjective Progress Note Date: 01/28/25 Principal diagnosis: Reason for follow-up is sepsis/C. difficile colitis Patient is a 74-year-old female past medical history working for hypertension Mnire's disease recently received antibiotic for episode of diverticulitis in the form of Cipro and Flagyl, patient subsequent vomiting diarrhea has been diagnosed with a significant lightest with sepsis prompting th is consultation On today's evaluation that is 01/28/2025, Patient is afebrile this morning patient denies having any chest pain shortness of breath or cough, the patient is currently on room air, patient denies any abdominal pain and did have improvement her diarrhea did have soft bowel movement today feeling better wants to go home. Patient did have a creatinine of 0.70 no CBC was done today Objective - Vital Signs Vital signs: Vital Signs Temp 98.7 F 01/28/25 11:44 Pulse 62 01/28/25 11:44 Resp 14 01/28/25 11:44 BP 120/70 01/28/25 11:44 Pulse Ox 95 01/28/25 11:44 FiO2 Intake & Output 01/27/25 01/28/25 01/28/25 18:59 06:59 18:59 Intake Total 120 Balance 120 Weight 93.6 kg Intake: Oral 120 Other: Voiding Method Toilet Toilet Toilet # Voids 1 - Exam GENERAL DESCRIPTION: An elderly female lying in bed in no distress RESPIRATORY SYSTEM: Unlabored breathing , decreased breath sounds at bases HEART: S1 S2 regular rate and rhythm , ABDOMEN: Soft , mild lower abdominal tenderness EXTREMITIES: No edema feet - Labs CBC & Chem 7: 01/27/25 06:59 01/28/25 06:27 Labs: Abnormal Lab Results - Last 24 Hours (Table) 01/28/25 Range/Units 06:27 Chloride 112 H (98-107) mmol/L BUN 4 L (7-17) mg/dL Microbiology - Last 24 Hours (Table) 01/24/25 15:19 Blood Culture - Preliminary Blood Assessment and Plan (1) Allergy to multiple antibiotics Current Visit: Yes Status: Acute Code(s): Z88.1 - ALLERGY STATUS TO OTHER ANTIBIOTIC AGENTS SNOMED Code(s): 320537409 (2) C. difficile colitis Current Visit: Yes Status: Acute Code(s): A04.72 - ENTEROCOLITIS D/T CLOSTRIDIUM DIFFICILE, NOT SPCF RECUR SNOMED Code(s): 058925135 (3) Sepsis Current Visit: Yes Status: Acute Code(s): A41.9 - SEPSIS, UNSPECIFIED ORGANISM SNOMED Code(s): 64877280 Plan: 1patient presented to hospital with sepsis in this patient who did have fever tachycardia elevated white count meeting criteria for SIRS/sepsis source is acute colitis related to C. difficile in this patient who is recently been exposed to antibiotics for her episode of diverticulitis in the form of Cipro and Flagyl 2-patient did have improvement in her diarrhea white count is normalized we will recommend a 10-day course of oral vancomycin and Questran as needed and close outpatient follow-up prescription sent to the pharmacy Dictation was produced using [employer] dictation software. please excuse any grammatical, word or spelling errors.
--- NOTE | 2025-02-02 16:21 | P.PN ---
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 Patient presents to ER with complaints of decreased appetite and not able to eat. She was also having nausea vomiting and diarrhea and abdominal pain abdominal pain is mainly diffuse. Patient also states that she been having urine output today. Patient completed antibiotics for diverticulitis about 2 weeks ago. Patient did have fever with Tmax 103 on admission.. EKG showed sinus tachycardia CT of abdomen pelvis showed acute uncomplicated diverticulitis/colitis of the descending colon/sigmoid colon. Hepatic steatosis. Laboratory data showed WBC 14.4 hemoglobin 15.2 and platelets 247 Sodium 134 potassium 3.8 chloride 99 bicarb is 21 BUN 15 and creatinine 1.25 and blood sugar 129 liver enzymes are not elevated Urinalysis showed clear with 4+ glucose and 2+ ketones C. difficile stool sample is positive Influenza A B RSV and COVID-19 PCR not detected. 01/25/2025 Patient is resting in the bed. Awake alert and oriented x 3. Feels better. Still having watery diarrhea. No complaints of abdominal pain. No nausea or vomiting. No cough or cold breath. Patient has been febrile overnight. Patient has been febrile overnight. Temperature 100.1 this afternoon. Cultures have been negative. ID is on board. 01/26/2025 Patient is resting in the bed. Awake alert and oriented. No complaints of abdominal pain. Still having diarrhea. Questran was added. Continued on vancomycin p.o. Laboratory data reviewed. Potassium has been replaced. Denied any complaints of chest pain or shortness of breath. Current medications reviewed. Objective - Vital Signs Vital signs: Vital Signs Temp 99.3 F 01/26/25 11:54 Pulse 86 01/26/25 11:54 Resp 17 01/26/25 11:54 BP 144/72 01/26/25 11:54 Pulse Ox 96 01/26/25 11:54 FiO2 Intake & Output 01/25/25 01/26/25 01/26/25 18:59 06:59 18:59 Intake Total 20 260 260 Balance 20 260 260 Weight 85.5 kg Intake: IV 20 20 20 Invasive Line 1 20 20 20 Oral 240 240 Other: Voiding Method Toilet Toilet Toilet # Voids 2 # Bowel Movements 3 2 2 - Exam PHYSICAL EXAMINATION: Patient is lying in the bed comfortably, no acute distress, awake alert and oriented.. HEENT: Normocephalic. Neck is supple. Pupils reactive. Nostrils clear. Oral cavity is moist. Neck reveals no JVD, carotid bruits, or thyromegaly. CHEST EXAMINATION: Trachea is central. Symmetrical expansion. Lung reddy clear to auscultation and percussion. CARDIAC: Normal S1, S2 with no gallops. No murmurs ABDOMEN: Soft. Bowel sounds normal. No organomegaly. No abdominal bruits. Extremities: reveal no edema. No clubbing or cyanosis Neurologically awake, alert, oriented x3 with well-coordinated movements. No focal deficits noted Skin: No rash or skin lesions. Psychiatric: Coperative. Nonsuicidal Musculoskeletal: No joint swelling or deformity. Normal range of motion. - Labs CBC & Chem 7: 01/27/25 06:59 01/28/25 06:27 Labs: Abnormal Lab Results - Last 24 Hours (Table) 01/26/25 01/26/25 Range/Units 10:48 10:48 RBC 3.91 L (4.10-5.20) 10*6/uL Hgb 11.7 L (12.0-15.0) g/dL Hct 34.8 L (37.2-46.3) % Lymphocytes # 0.89 L (0.90-5.00) 10*3/uL Eosinophils # 0.02 L (0.04-0.35) 10*3/uL Sodium 136 L (137-145) mmol/L Potassium 2.9 L (3.5-5.1) mmol/L Chloride 108 H (98-107) mmol/L Carbon Dioxide 21 L (22-30) mmol/L Glucose 110 H (74-99) mg/dL Calcium 8.3 L (8.4-10.2) mg/dL Microbiology - Last 24 Hours (Table) 01/24/25 15:19 Blood Culture - Preliminary Blood Assessment and Plan Assessment: Acute C. difficile colitis. CT showed colitis of the descending colon/sigmoid colon Sepsis secondary to above Severe hypokalemia Recent antibiotic use for acute diverticulitis 2 weeks ago Hepatic steatosis Hypertension Migraine headaches History of Mnire's disease Basal cell skin cancer of the right lip Prior history of smoking DVT prophylaxis with heparin subcu Plan: Patient will be currently on IV hydration with normal saline. Continue with p.o. vancomycin and follow-up blood cultures. Questran for diarrhea. Potassium replacement. Home blood pressure medications on hold. Continue with GI and DVT prophylaxis. ID will be consulted and follow-up closely.
--- NOTE | 2025-02-02 16:23 | P.PN ---
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 Patient presents to ER with complaints of decreased appetite and not able to eat. She was also having nausea vomiting and diarrhea and abdominal pain abdominal pain is mainly diffuse. Patient also states that she been having urine output today. Patient completed antibiotics for diverticulitis about 2 weeks ago. Patient did have fever with Tmax 103 on admission.. EKG showed sinus tachycardia CT of abdomen pelvis showed acute uncomplicated diverticulitis/colitis of the descending colon/sigmoid colon. Hepatic steatosis. Laboratory data showed WBC 14.4 hemoglobin 15.2 and platelets 247 Sodium 134 potassium 3.8 chloride 99 bicarb is 21 BUN 15 and creatinine 1.25 and blood sugar 129 liver enzymes are not elevated Urinalysis showed clear with 4+ glucose and 2+ ketones C. difficile stool sample is positive Influenza A B RSV and COVID-19 PCR not detected. 01/25/2025 Patient is resting in the bed. Awake alert and oriented x 3. Feels better. Still having watery diarrhea. No complaints of abdominal pain. No nausea or vomiting. No cough or cold breath. Patient has been febrile overnight. Patient has been febrile overnight. Temperature 100.1 this afternoon. Cultures have been negative. ID is on board. 01/26/2025 Patient is resting in the bed. Awake alert and oriented. No complaints of abdominal pain. Still having diarrhea. Questran was added. Continued on vancomycin p.o. Laboratory data reviewed. Potassium has been replaced. Denied any complaints of chest pain or shortness of breath. 01/27/2025 Patient is resting in the bed. Awake alert and oriented. Diarrhea is better today. Stool is more semisolid today. No complaints of abdominal pain. Able to tolerate oral diet. Otherwise patient is being continued on vancomycin p.o. Potassium level improved. Anticipate discharge in next 24 hours with more clinical improvement. Current medications reviewed. Objective - Vital Signs Vital signs: Vital Signs Temp 98.2 F 01/27/25 19:55 Pulse 61 01/27/25 19:55 Resp 16 01/27/25 19:55 BP 127/64 01/27/25 19:55 Pulse Ox 96 01/27/25 19:55 FiO2 Intake & Output 01/27/25 01/27/25 01/28/25 06:59 18:59 06:59 Intake Total 20 120 Balance 20 120 Intake: IV 20 Invasive Line 1 20 Oral 120 Other: Voiding Method Toilet Toilet Toilet # Voids 2 1 # Bowel Movements 7 - Exam PHYSICAL EXAMINATION: Patient is lying in the bed comfortably, no acute distress, awake alert and oriented.. HEENT: Normocephalic. Neck is supple. Pupils reactive. Nostrils clear. Oral cavity is moist. Neck reveals no JVD, carotid bruits, or thyromegaly. CHEST EXAMINATION: Trachea is central. Symmetrical expansion. Lung reddy clear to auscultation and percussion. CARDIAC: Normal S1, S2 with no gallops. No murmurs ABDOMEN: Soft. Bowel sounds normal. No organomegaly. No abdominal bruits. Extremities: reveal no edema. No clubbing or cyanosis Neurologically awake, alert, oriented x3 with well-coordinated movements. No focal deficits noted Skin: No rash or skin lesions. Psychiatric: Coperative. Nonsuicidal Musculoskeletal: No joint swelling or deformity. Normal range of motion. - Labs CBC & Chem 7: 01/27/25 06:59 01/28/25 06:27 Labs: Abnormal Lab Results - Last 24 Hours (Table) 01/27/25 01/27/25 Range/Units 06:59 06:59 RBC 3.77 L (4.10-5.20) 10*6/uL Hgb 11.2 L (12.0-15.0) g/dL Hct 33.2 L (37.2-46.3) % Chloride 115 H (98-107) mmol/L Carbon Dioxide 19 L (22-30) mmol/L BUN 5 L (7-17) mg/dL Calcium 8.0 L (8.4-10.2) mg/dL Microbiology - Last 24 Hours (Table) 01/24/25 15:19 Blood Culture - Preliminary Blood Assessment and Plan Assessment: Acute C. difficile colitis. CT showed colitis of the descending colon/sigmoid colon Sepsis secondary to above Severe hypokalemia. Improved. Recent antibiotic use for acute diverticulitis 2 weeks ago Hepatic steatosis Hypertension Migraine headaches History of Mnire's disease Basal cell skin cancer of the right lip Prior history of smoking DVT prophylaxis with heparin subcu Plan: Patient will be currently on IV hydration with normal saline. Continue with p.o. vancomycin and follow-up blood cultures. Questran for diarrhea. Potassium replacement. Home blood pressure medications on hold. Continue with GI and DVT prophylaxis. ID will be consulted and follow-up closely.
--- NOTE | 2025-02-02 16:26 | P.DS ---
Providers Date of admission: 01/24/25 16:57 Expected date of discharge: 01/28/25 Attending physician: Tamika Engel Consults: 01/24/25 22:54 Consult Physician Routine Consulting Provider: Emmanuel Nunez Consult Reason/Comments: C diff colitis, Sepsis Do you want consulting provider notified?: Yes Primary care physician: Michael Bobo Hospital Course: Discharge diagnosis Acute C. difficile colitis. CT showed colitis of the descending colon/sigmoid colon Sepsis secondary to above Severe hypokalemia. Improved. Recent antibiotic use for acute diverticulitis 2 weeks ago Hepatic steatosis Hypertension Migraine headaches History of Mnire's disease Basal cell skin cancer of the right lip Prior history of smoking DVT prophylaxis with heparin subcu Hospital course Patient is a 74-year-old female with a past medical history of hypertension, migraine headaches, Mnire's disease, basal cell skin cancer above right lip and prior history of smoking. Patient presents to ER with complaints of decreased appetite and not able to eat. She was also having nausea vomiting and diarrhea and abdominal pain abdominal pain is mainly diffuse. Patient also states that she been having urine output today. Patient completed antibiotics for diverticulitis about 2 weeks ago. Patient did have fever with Tmax 103 on admission.. EKG showed sinus tachycardia CT of abdomen pelvis showed acute uncomplicated diverticulitis/colitis of the descending colon/sigmoid colon. Hepatic steatosis. Laboratory data showed WBC 14.4 hemoglobin 15.2 and platelets 247 Sodium 134 potassium 3.8 chloride 99 bicarb is 21 BUN 15 and creatinine 1.25 and blood sugar 129 liver enzymes are not elevated Urinalysis showed clear with 4+ glucose and 2+ ketones C. difficile stool sample is positive Influenza A B RSV and COVID-19 PCR not detected. 01/25/2025 Patient is resting in the bed. Awake alert and oriented x 3. Feels better. Still having watery diarrhea. No complaints of abdominal pain. No nausea or vomiting. No cough or cold breath. Patient has been febrile overnight. Patient has been febrile overnight. Temperature 100.1 this afternoon. Cultures have been negative. ID is on board. 01/26/2025 Patient is resting in the bed. Awake alert and oriented. No complaints of abdominal pain. Still having diarrhea. Questran was added. Continued on vancomycin p.o. Laboratory data reviewed. Potassium has been replaced. Denied any complaints of chest pain or shortness of breath. 01/27/2025 Patient is resting in the bed. Awake alert and oriented. Diarrhea is better today. Stool is more semisolid today. No complaints of abdominal pain. Able to tolerate oral diet. Otherwise patient is being continued on vancomycin p.o. Potassium level improved. Anticipate discharge in next 24 hours with more clinical improvement. 01/28/2025 Patient is resting in bed. Awake alert and oriented. Diarrhea is much improved. Labs and laboratory data reviewed. Patient will be continued on antibiotic course with vancomycin. Prescription has been provided by ID. Patient is being discharged home today. No other acute overnight issues. PHYSICAL EXAMINATION: Patient is lying in the bed comfortably, no acute distress, awake alert and oriented.. HEENT: Normocephalic. Neck is supple. Pupils reactive. Nostrils clear. Oral cavity is moist. Neck reveals no JVD, carotid bruits, or thyromegaly. CHEST EXAMINATION: Trachea is central. Symmetrical expansion. Lung reddy clear to auscultation and percussion. CARDIAC: Normal S1, S2 with no gallops. No murmurs ABDOMEN: Soft. Bowel sounds normal. No organomegaly. No abdominal bruits. Extremities: reveal no edema. No clubbing or cyanosis Neurologically awake, alert, oriented x3 with well-coordinated movements. No focal deficits noted Skin: No rash or skin lesions. Psychiatric: Coperative. Nonsuicidal Musculoskeletal: No joint swelling or deformity. Normal range of motion. Vital signs: Vital Signs Temp 98.7 F 01/28/25 11:44 Pulse 62 01/28/25 11:44 Resp 14 01/28/25 11:44 BP 120/70 01/28/25 11:44 Pulse Ox 95 01/28/25 11:44 FiO2 Intake & Output 01/27/25 01/28/25 01/28/25 18:59 06:59 18:59 Intake Total 120 Balance 120 Weight 93.6 kg Intake: Oral 120 Other: Voiding Method Toilet Toilet Toilet # Voids 1 Patient Condition at Discharge: Stable Plan - Discharge Summary Discharge Rx Participant: Yes New Discharge Prescriptions: New Cholestyramine (with Sugar) [Questran] 4 gm PO BID #20 packet Vancomycin HCl [Vancocin HCl] 250 mg PO Q6HR #40 cap Continue Citalopram Hydrobromide [CeleXA] 20 mg PO DAILY Olmesartan/Hydrochlorothiazide [Olmesartan-Hctz 40-25 mg Tab] 0.5 - 1 tab PO DAILY Empagliflozin [Jardiance] 10 mg PO DAILY Discharge Medication List Citalopram Hydrobromide [CeleXA] 20 mg PO DAILY 01/24/25 [History] Empagliflozin [Jardiance] 10 mg PO DAILY 01/24/25 [History] Olmesartan/Hydrochlorothiazide [Olmesartan-Hctz 40-25 mg Tab] 0.5 - 1 tab PO DAILY 01/24/25 [History] Cholestyramine (with Sugar) [Questran] 4 gm PO BID #20 packet 01/28/25 [Rx] Vancomycin HCl [Vancocin HCl] 250 mg PO Q6HR #40 cap 01/28/25 [Rx] Follow up Appointment(s)/Referral(s): Michael Bobo MD [Primary Care Provider] - 1-2 days (Patient to make appointment) Emmanuel Nunez MD [STAFF PHYSICIAN] - 1 Week (Patient to make appointment ) Patient Instructions/Handouts: Sepsis (GEN), C. Diff (Clostridioides Difficile) Infection (GEN) Discharge Disposition: HOME SELF-CARE
== END 2025-01-28 16:17 | disposition home or self-care (01) | DRG 872 ==
LOC: EC 11:52 → 3SCARD 16:57
PROVIDERS: ADMIT Internal Medicine; ATTEND Internal Medicine
DX: A41.89 Other specified sepsis (principal); A04.72 Enterocolitis due to Clostridium difficile, not specified as recurrent; I10 Essential (primary) hypertension; K76.0 Fatty (change of) liver, not elsewhere classified; E66.9 Obesity, unspecified; K57.32 Diverticulitis of large intestine without perforation or abscess without bleeding; G43.909 Migraine, unspecified, not intractable, without status migrainosus; E87.6 Hypokalemia; H81.09 Meniere's disease, unspecified ear; Z68.32 Body mass index [BMI] 32.0-32.9, adult; Z87.891 Personal history of nicotine dependence; Z85.828 Personal history of other malignant neoplasm of skin; Z79.899 Other long term (current) drug therapy; Z79.84 Long term (current) use of oral hypoglycemic drugs; Z88.0 Allergy status to penicillin; Z88.4 Allergy status to anesthetic agent; Z88.1 Allergy status to other antibiotic agents
CPT/HCPCS: 36415; 74177; 80048; 80053; 81001; 82150; 83605; 83690; 83735; 84132; 85025; 87040; 87324; 87636; 93005; 96361; 96365; 96375; 99285